=== PATIENT | male | born 1970 | race Caucasian/White ===

== ENCOUNTER 2023-07-02 11:32 | Outpatient (AMB) | payer BC, SELFPAY ==
--- NOTE | 2023-07-02 12:40 | AM.OFFWIN_ITS ---
I did not evaluate this patient. Intake Vital Signs 07/02/23 12:46 Height 6 ft BP 116/70 Blood Pressure Location Lt brachial Position Sitting Pulse 100 Pulse Source Pulse Oximeter Temp 98.1 F Temp Source Temporal Artery Scan Pulse Oximetry (%) 99 Oxygen Delivery Method Room Air Intake Visit Reasons: EP Fever, Eyes, bodyache [phone] Intake Note: Pt is here c/o fevers, body aches and red puffy bilateral eye irritation for the past three days. Patient Tobacco Use Status: Never used Tobacco Allergies No Known Allergies Allergy (Verified 07/02/23 12:41) Do you need a note to return to daycare/school/sports/work: Yes HPI EP Fever, Eyes, bodyache [phone] HPI Details Patient presents for a sick visit. Reporting symptoms of sinus congestion, sore throat and difficulty swallowing. Low-grade fever. No family member is sick. No recent travel. Patient reports symptoms of malaise and fatigue. [facility] Social History Patient Tobacco Use Status: Never used Tobacco Physical Exam Vital Signs: Last Vital Signs Temp 98.1 F 07/02/23 12:46 Pulse 100 07/02/23 12:46 BP 116/70 07/02/23 12:46 Pulse Ox 99 07/02/23 12:46 Oxygen Delivery Method Room Air 07/02/23 12:46 Const General: cooperative and healthy appearing Nutritional Appearance: well nourished Orientation/consciousness: patient oriented x3 Limitations: no limitations HEENT Head: Yes normal to inspection Eyes General: appearance normal, both eyes and all related structures Neck Neck: Yes normal visual inspection Chest Chest palpation & inspection: normal palpation of entire chest wall Resp Effort & Inspection: normal respiratory effort Neuro General: patient oriented x3 Assessment & Plan Assessment & Plan (1) Upper respiratory tract infection: Code(s): J06.9 - Acute upper respiratory infection, unspecified Plan: Azithromycin called in. . Increase fluid intake. Tylenol for aches and pains. If symptoms worsen, follow-up here for a recheck. Orders: Orders AMB [place] Screen Today Z13.9 - Encounter for screening, unspecified Coding Level of Care Code Est Pt Level 3 (55276) Diagnoses Upper respiratory tract infection J06.9
[2023-07-02 12:46] VITALS: BP 116/70; PULSE 100; TEMP 36.7; O2SAT 99
== END 2023-07-02 14:03 | disposition home or self-care (01) ==
PROVIDERS: Visit Provider Internal Medicine
DX: J06.9 Acute upper respiratory infection, unspecified (principal)
CPT/HCPCS: 99213

== ENCOUNTER 2023-07-02 13:17 | Outpatient (REF) | payer BC, SELFPAY ==
[2023-07-02 16:50] LABS: Monotest Negative (Negative)
== END 2023-07-02 13:18 | disposition home or self-care (01) ==
LOC: HO.HMGCLDS 13:17
PROVIDERS: Visit Provider Internal Medicine
DX: Z13.9 Encounter for screening, unspecified (principal)
CPT/HCPCS: 36415; 86308

== ENCOUNTER 2023-09-19 12:05 | Outpatient (AMB) | payer BC, SELFPAY ==
--- NOTE | 2023-09-19 12:14 | MHC.PC.OV ---
Vital Signs 09/19/23 12:15 Height 6 ft Weight 326 lb BMI 44.2 BP 130/74 Blood Pressure Location Lt brachial Position Sitting Pulse 87 Pulse Source Pulse Oximeter Pulse Oximetry (%) 97 Oxygen Delivery Method Room Air Intake Visit Reasons: est care Intake Note: Patient is here as a new patient with concern of fungus in both feet, and a scratched left cornea, it feels as if there is something in there. Allergies No Known Allergies Allergy (Verified 09/19/23 12:26) Tobacco use date assessed: 09/19/23 Dental Screening Dental Screen Date: 09/19/23 Did you have a dental visit in the last 12 months?: No Did you have a dental problem in the last 6 months where you did not have access to dental care?: No Was dental information given to patient?: Patient declined HPI est care HPI Details New patient Prior PCP:Kiarra Last office visit/CPE: 2 years Acute issue(s): Fungal infection of nail Eye irritation PMHx: Vertigo, Sleep apnea, Nail fungal infection. PNA SurgHx: None FHx: Dad: DM. Mom: Lung CA SocHx: Nonsmoker. EtOH Socially 1-2. No drugs. 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 Cognitive needs: No Hearing needs: No Vision needs: No Questionnaire Thrive Questionnaire Date Thrive assessed: 09/19/23 I am a: Patient What is your living situation today?: I have a steady place to live Within the past 12 months, did the food you bought not last and you didn't have the money to get more?: Never true Within the past 12 months, did you worry whether your food would run out before you got money to buy more?: Never true Do you have trouble paying for medicines?: No Do you have trouble getting transportation to medical appointments?: No Do you have trouble paying your heating and electricity bill?: No Do you have trouble taking care of your child, family member or friend?: No Do you have trouble with day-to-day activities such as bathing, preparing meals, shopping, managing finances, etc.?: No Are you currently unemployed and looking for a job?: No Are you interested in more education?: No AUDIT C Alcohol Use Questionnaire (AUDIT-C) 1. How often do you have a drink containing alcohol?: Never 2. How many drinks containing alcohol do you have on a typical day when you are drinking?: 1 or 2 3. How often do you have six or more drinks on one occasion?: Never Total Score: 0 SALBADOR-7 AMB Questionnaire SALBADOR-7 Feeling nervous, anxious, or on edge: 0 = Not at all Not being able to stop or control worryin = Not at all Worrying too much about different things: 0 = Not at all Trouble relaxin = Not at all Being so restless that it is hard to sit still: 0 = Not at all Becoming easily annoyed or irritable: 0 = Not at all Feeling afraid as if something awful might happen: 0 = Not at all Total SALBADOR-7 score (0-4 normal; 5-9 mild; 10-14 moderate; 15-21 severe): 0 Source: Developed by Drs. Gus Palacios, Em Clancy, Fede Hood and colleagues, with an educational karina from [employer]. Review of Systems Const Denies chills, Denies fatigue, Denies fever(s), Denies headache(s) and Denies weakness ENT Denies dizziness and Denies headache(s) Card Denies chest pain, Denies lightheadedness, Denies dyspnea and Denies other (Palpitations) Resp Denies cough, Denies dyspnea, Denies wheezing and Denies other ( shortness of breath) Musc Denies numbness and Denies tingling Neuro Denies dizziness, Denies headache(s), Denies numbness, Denies tingling, Denies paresthesias and Denies weakness Psych Denies anxiety and Denies depression Endo Denies fatigue Aller/Immun Denies wheezing Physical exam (Primary Care) Vital Signs: Last Vital Signs Pulse 87 09/19/23 12:15 BP 130/74 09/19/23 12:15 Pulse Ox 97 09/19/23 12:15 Oxygen Delivery Method Room Air 09/19/23 12:15 BMI result Body Mass Index 44.2 Tobacco/Smoking Status: Tobacco use Status Tobacco use date assessed 09/19/23 09/19/23 12:42 Patient Tobacco Use Status Never used Tobacco 09/19/23 12:42 Thrive Assessment: Date of Thrive Assessment Date Thrive assessed 09/19/23 09/19/23 12:42 Const General: no acute distress and well developed Nutritional Appearance: obese morbidly obese Orientation/consciousness: patient oriented x3 HENMT Head: Yes normocephalic and Yes atraumatic Eyes General: appearance normal, both eyes and all related structures Pupils: Equal, round and reactive pupils present EOM: EOMs intact bilaterally Resp Effort & Inspection: normal respiratory effort Auscultation: clear to auscultation bilaterally Cardio Rate: regular rate Rhythm: regular rhythm Heart sounds: S1 normal heart sound present, S2 normal heart sound present, no gallops, no murmurs and no rubs Neuro General: patient oriented x3 and gait normal Cranial nerves: Yes Equal, round and reactive pupils present Psych Affect: normal affect Assessment and Plan Assessment & Plan (1) Fungal infection of nail: Code(s): B35.1 - Tinea unguium Plan: Patient?has?used?oral?Lamisil?in?the?past Will?check?liver?enzymes?and?we?can?discuss?using?this?again?if?enzymes?are?within?normal?limits?and?patient?agrees?to?regular?checks. (2) Eye irritation: Code(s): H57.89 - Other specified disorders of eye and adnexa Plan: Left?scleral?irritation?which?may?be?allergic No?obvious?foreign?body?seen?but?can?not?rule?out?occult?foreign?body Will?refer?him?to?Ophthalmology Meantime,?he?can?use?an?erythromycin?ointment Will?also?give?him?a?script?for?eyedrops (3) Sleep apnea: Code(s): G47.30 - Sleep apnea, unspecified Plan: Continue?CPAP (4) Laboratory exam ordered as part of routine general medical examination: Code(s): Z00.00 - Encounter for general adult medical examination without abnormal findings Plan: Check?labs Orders: Orders Comprehensive Union. Panel Fast Today Z00.00 - Encounter for general adult medical examination without abnormal findings Prostate Specific Antigen Scr Today Z12.5 - Encounter for screening for malignant neoplasm of prostate UA and rflx microscopic Today Z00.00 - Encounter for general adult medical examination without abnormal findings Lipid Panel Today Z00.00 - Encounter for general adult medical examination without abnormal findings Microalbumin, Random (w Creat) Today I10 - Essential (primary) hypertension TSH reflex Free T4 Today Z00.00 - Encounter for general adult medical examination without abnormal findings Medications: New olopatadine 0.7% 1 drp ophthalmic (eye) DAILY 5 mL 1RF 30 days erythromycin 0.5 inches ophthalmic (eye) TID 3.5 grams 0RF 7 days Coding Level of Care Code Est Pt Level 4 (80376) Diagnoses Fungal infection of nail B35.1 Eye irritation H57.89 Sleep apnea G47.30 Laboratory exam ordered as part of routine general medical examination Z00.00
[2023-09-19 12:15] VITALS: BP 130/74; PULSE 87; O2SAT 97; BMI 44.2
== END 2023-09-19 13:21 | disposition home or self-care (01) ==
PROVIDERS: Visit Provider Family Medicine
DX: B35.1 Tinea unguium (principal); H57.89 Other specified disorders of eye and adnexa; G47.30 Sleep apnea, unspecified; Z00.00 Encounter for general adult medical examination without abnormal findings
CPT/HCPCS: 99214

== ENCOUNTER 2023-11-21 11:10 | Outpatient (REF) | payer BC, SELFPAY ==
[2023-11-21 12:36] LABS: Appearance Urine Clear; Color Urine Yellow; Glucose Urine UA Negative (Negative); Leukocyte Esterase Urine Negative (Negative); Nitrite Urine Negative (Negative); PH 5.5 (5.0-9.0); Specific Gravity - Urine 1.025 (1.005-1.025); Urine Blood Negative (Negative); Urine Ketones Negative (Negative); Urine Protein Trace mg/dL (Neg-Trace)
[2023-11-21 12:39] LABS: Alanine Aminotransferase 36 U/L (0-40); Alkaline Phosphatase 90 U/L (39-117); Anion Gap 9 (12-20); Aspartate Amino Transferase 20 U/L (5-37); Bilirubin Total 0.4 mg/dL (0.0-1.0); Blood Urea Nitrogen 14 mg/dL (9-16); Calcium 9.3 mg/dL (8.4-10.2); Carbon Dioxide 27 mmol/L (22-29); Chloride 107 mmol/L (96-108); Cholesterol 155 mg/dL (<200); Estimated Glomerular Filt Rate > 60; Glucose Fasting 117 mg/dL (60-99); HDL Cholesterol 36 mg/dL (>40); LDL Cholesterol Calculated 87 mg/dL (<100); Sodium 139 mmol/L (135-145); Total Protein 7.2 g/dL (6.5-8.0); Triglycerides 164 mg/dL (<150)
[2023-11-21 12:42] LABS: TSH reflex Free T4 0.84 uIU/mL (0.32-4.0)
[2023-11-21 13:02] LABS: Creatinine Urine 171.34 mg/dL; Microalbum/Creatinine Ratio Ur 69.4 ug/mg cr (<30)
== END 2023-11-21 11:11 | disposition home or self-care (01) ==
LOC: HO.LAB 11:10
PROVIDERS: PCP Family Medicine; Visit Provider Family Medicine
DX: Z00.00 Encounter for general adult medical examination without abnormal findings (principal); Z12.5 Encounter for screening for malignant neoplasm of prostate; I10 Essential (primary) hypertension
CPT/HCPCS: 36415; 80053; 80061; 81003; 82043; 82570; 84153; 84443

== ENCOUNTER 2023-12-25 10:07 | Outpatient (AMB) | payer OTHER, SELFPAY ==
[2023-12-25 10:11] VITALS: BP 128/72; PULSE 85; O2SAT 95; BMI 40.9
--- NOTE | 2023-12-25 10:11 | A.OFFPC_ITS ---
Vital Signs 12/25/23 10:11 Height 6 ft Weight 301 lb 4 oz BMI 40.9 BP 128/72 Blood Pressure Location Lt brachial Position Sitting Pulse 85 Pulse Source Pulse Oximeter Pulse Oximetry (%) 95 Oxygen Delivery Method Room Air Intake Visit Reasons: CPE with f/u labs and health maint. Intake Note: Patient is here for physical and follow up on labs, and is concerned of a little incontinence for months, since weight gain. Patient feels lack of energy, lethargic. Allergies No Known Allergies Allergy (Verified 12/25/23 10:17) Tobacco use date assessed: 12/25/23 Dental Screening Dental Screen Date: 12/25/23 Did you have a dental visit in the last 12 months?: No Did you have a dental problem in the last 6 months where you did not have access to dental care?: No Was dental information given to patient?: Patient declined HPI CPE with f/u labs and health maint. HPI Details 53 y/o male presents for a CPE with f/u labs and health maintenance. Labs were drawn 11/21/23. Reviewed labs with pt. Triglycerides 164. TC 155. LDL 87. HDL low at 36. Elevated fasting glucose of 117. A1c today 12/25/23 is 7.0%. Microalb/Creat Ratio 69.4. Pt has complaints of urinary incontinence. Pt has not had a colonoscopy yet. 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 1. Little interest or pleasure in doing things: not at all 2. Feeling down, depressed, or hopeless: not at all 3. Trouble falling or staying asleep, or sleeping too much: not at all 4. Feeling tired or having little energy: not at all 5. Poor appetite or overeating: not at all 6. Feeling bad about yourself - or that you are a failure or have let yourself or your family down: not at all 7. Trouble concentrating on things, such as reading the newspaper or watching television: not at all 8. Moving or speaking so slowly that other people could have noticed. Or the opposite - being so fidgety or restless that you have been moving around a lot more than usual: not at all 9. Thoughts that you would be better off or of hurting yourself in some way: not at all Total score: 0 Depression Screening Interpretation: Negative Depression Screening Done: Yes 08849 - PHQ-9 Billing: Yes Source: Developed by Drs. Gus Palacios, Em Clancy, Fede Hood and colleagues, with an educational karina from [employer]. Thrive Questionnaire Date Thrive assessed: 12/25/23 I am a: Patient What is your living situation today?: I have a steady place to live Within the past 12 months, did the food you bought not last and you didn't have the money to get more?: Never true Within the past 12 months, did you worry whether your food would run out before you got money to buy more?: Never true Do you have trouble paying for medicines?: No Do you have trouble getting transportation to medical appointments?: No Do you have trouble paying your heating and electricity bill?: No Do you have trouble taking care of your child, family member or friend?: No Do you have trouble with day-to-day activities such as bathing, preparing meals, shopping, managing finances, etc.?: No Are you currently unemployed and looking for a job?: No Are you interested in more education?: Yes THRIVE Score: 0 AUDIT C Alcohol Use Questionnaire (AUDIT-C) 1. How often do you have a drink containing alcohol?: Monthly or less 2. How many drinks containing alcohol do you have on a typical day when you are drinking?: 1 or 2 3. How often do you have six or more drinks on one occasion?: Never Total Score: 1 SALBADOR-7 AMB Questionnaire SALBADOR-7 Date SALBADOR - 7 assessed: 12/25/23 Feeling nervous, anxious, or on edge: 1 = Several days Not being able to stop or control worryin = Not at all Worrying too much about different things: 0 = Not at all Trouble relaxin = Several days Being so restless that it is hard to sit still: 0 = Not at all Becoming easily annoyed or irritable: 1 = Several days Feeling afraid as if something awful might happen: 0 = Not at all Total SALBADOR-7 score (0-4 normal; 5-9 mild; 10-14 moderate; 15-21 severe): 3 Source: Developed by Drs. Gus Palacios, Em Clancy, Fede Hood and colleagues, with an educational karina from [employer]. SALBADOR-7 Assessment Billing SALBADOR-7 Assessment Tool: SALBADOR-7 Assessment 26483 Review of Systems Const Denies chills, Denies fatigue, Denies fever(s), Denies headache(s) and Denies weakness Eyes Denies change in vision ENT Denies dizziness, Denies headache(s), Denies hearing loss, Denies nasal congestion, Denies sinus pain, Denies sinus pressure and Denies sore throat Card Denies chest pain, Denies lightheadedness, Denies dyspnea and Denies other (palpitations) Resp Denies cough, Denies dyspnea and Denies wheezing GI Denies abdominal pain, Denies melena, Denies hematochezia, Denies change in bowel habits, Denies dyspepsia and Denies nausea Denies hematuria and Denies dysuria Musc Denies abnormal gait, Denies myalgias, Denies arthralgias, Denies numbness and Denies tingling Skin/Breast Denies rash, Denies unusual bruising and Denies wounds Neuro Denies abnormal gait, Denies dizziness, Denies headache(s), Denies memory loss, Denies numbness, Denies Sensory deficit (Neuro), Denies tingling and Denies weakness Psych Denies anxiety, Denies depression and Denies memory loss Endo Denies cold intolerance, Denies fatigue, Denies heat intolerance, Denies polydipsia and Denies polyuria Paresh/Lymph Denies easy bleeding and Denies easy bruising Aller/Immun Denies wheezing Physical exam (Primary Care) Vital Signs: Last Vital Signs Pulse 85 12/25/23 10:11 BP 128/72 12/25/23 10:11 Pulse Ox 95 12/25/23 10:11 Oxygen Delivery Method Room Air 12/25/23 10:11 BMI result Body Mass Index 40.9 Tobacco/Smoking Status: Tobacco use Status Tobacco use date assessed 12/25/23 12/25/23 10:19 Patient Tobacco Use Status Never used Tobacco 12/25/23 10:15 e-Cigarette/Vaping Use Never Used 12/25/23 10:19 PHQ-9: PHQ-9 Score PHQ-9: Total score 0 12/25/23 10:25 Depression Screening Interpretation: Negative Thrive Assessment: Date of Thrive Assessment Date Thrive assessed 12/25/23 12/25/23 10:25 Const General: no acute distress, well developed, alert and awake Nutritional Appearance: well nourished Orientation/consciousness: patient oriented x3 HENMT Head: Yes normocephalic and Yes atraumatic Ears: hearing grossly normal bilaterally and TM's normal bilaterally General nose exam: Normal external nose present and Normal nares present Mouth: Normal oral and palatal mucosa present and moist mucous membranes Teeth and gingiva: dentition normal Throat: Yes posterior oropharynx normal Eyes General: appearance normal, both eyes and all related structures Pupils: Equal, round and reactive pupils present and Pupil accommodation reflex normal EOM: EOMs intact bilaterally Neck Neck: Yes normal visual inspection, Yes no lymphadenopathy and Yes trachea midline Thyroid: Thyroid normal Carotids: no bruits Lymphatic: no lymphadenopathy noted Chest Chest palpation & inspection: normal inspection of the chest Resp Effort & Inspection: normal respiratory effort Auscultation: clear to auscultation bilaterally Cardio Rate: regular rate Rhythm: regular rhythm Heart sounds: S1 normal heart sound present, S2 normal heart sound present, no gallops, no murmurs and no rubs Bruits: no abdominal aortic bruits and no carotid bruits GI Palpation (GI): No Abdominal aortic bruit present, Soft to palpation, nontender, No hepatosplenomegaly present and No Rebound tenderness present Auscultation: normal bowel sounds General: Yes no CVA tenderness Back/Spine/Pelvis Back: no CVA tenderness Cervical Spine: cervical ROM normal and No Cervical spine tenderness Thoracic/Lumbar Spine: thoraco-lumbar ROM normal, No pain with thoraco-lumbar ROM, No thoracic spinal tenderness and No lumbar spinal tenderness Skin Lesions: no lesions Rashes: no rashes Trauma: no lacerations or abrasions Wounds: no wounds Nails: normal Neuro General: patient oriented x3 Cranial nerves: Yes Equal, round and reactive pupils present Cognition (Neuro): normal cognition Gait exam (Neuro): Normal gait present Motor exam (neuro): 5/5 motor strength present throughout Sensory Exam: No Sensory deficit (Neuro) Deep tendon reflexes (DTR's): Right patellar reflex intensity grade: 2+ and Left patellar reflex intensity grade: 2+ Extrem General: Yes normal to inspection and No edema Psych Appearance: grossly normal Affect: normal affect Attitude: cooperative Thought process: Normal thought process present Results AMB Hemoglobin A1c AMB Hemoglobin A1c 7.0 % Last Edit by Ginger Anthony CMA on 12/25/23 11:19 Assessment and Plan Assessment & Plan (1) Adult general medical exam: Code(s): Z00.00 - Encounter for general adult medical examination without abnormal findings Plan: 53-year-old?male?presents?for?complete?physical?exam Encouraged?weight?loss?and?healthy?diet?with?acti ve?lifestyle?and?plenty?of?exercise (2) Urinary hesitancy: Code(s): R39.11 - Hesitancy of micturition Plan: Check?urinalysis Can?try?Flomax?while?awaiting?referral?to?urology PSA?was?1.70 (3) Diabetes: Code(s): E11.9 - Type 2 diabetes mellitus without complications Plan: A1c?7.0%. Diabetes. Goal?is?to?keep?A1c?less?than?7.0% He?has?a?strong?family?history?of?diabetes?as?well. Microalbumin?is?elevated Start?metformin?500?mg?daily Reduce?sugars?and?starches?in?diet (4) Microalbuminuria: Code(s): R80.9 - Proteinuria, unspecified Plan: Hydrate?well Work?at?a?diet?lower?in?sugars?and?starches?as?fasting?blood?sugar?has?been?elev ated Work?at?weight?loss (5) Screening for colon cancer: Code(s): Z12.11 - Encounter for screening for malignant neoplasm of colon Plan: Due?for?colonoscopy Referred?to?GI (6) Screening for prostate cancer: Code(s): Z12.5 - Encounter for screening for malignant neoplasm of prostate Plan: PSA?is?within?normal?range?at?1.70 (7) Sleep apnea: Code(s): G47.30 - Sleep apnea, unspecified Plan: Known?sleep?apnea?and?uses?a?CPAP?machine. Has?not?had?this?calibrated?in?many?years.??I?recommended?he?follow-u p?with?his?specialist?and?he?agrees Orders: Orders UA and rflx microscopic Today R39.11 - Hesitancy of micturition, Z00.00 - Encounter for general adult medical examination without abnormal findings Urine Culture Today R39.11 - Hesitancy of micturition AMB Hemoglobin A1c Today Z13.9 - Encounter for screening, unspecified Referrals Urology Referral R39.11 - Hesitancy of micturition Gastroenterology Referral Z12.11 - Encounter for screening for malignant neoplasm of colon Medications: New tamsulosin (Flomax) 0.4 mg PO DAILY 30 days 30 caps 1RF metformin 500 mg PO DAILY 30 tabs 2RF 30 days Coding Level of Care Code Est Pt Level 3 (75460) Est Pt Prev Care 40-64y(85815) Diagnoses Adult general medical exam Z00.00 Urinary hesitancy R39.11 Diabetes E11.9 Microalbuminuria R80.9 Screening for colon cancer Z12.11 Screening for prostate cancer Z12.5 Sleep apnea G47.30 Additional Codes SALBADOR-7 Assessment Billing - SALBADOR-7 Assessment Tool: SALBADOR-7 Assessment 27395 ([id number])
== END 2023-12-25 11:30 | disposition home or self-care (01) ==
PROVIDERS: Visit Provider Family Medicine
DX: Z00.00 Encounter for general adult medical examination without abnormal findings (principal); R39.11 Hesitancy of micturition; E11.9 Type 2 diabetes mellitus without complications; R80.9 Proteinuria, unspecified; Z12.11 Encounter for screening for malignant neoplasm of colon; Z12.5 Encounter for screening for malignant neoplasm of prostate; G47.30 Sleep apnea, unspecified
CPT/HCPCS: 83036; 99213; 99396

== ENCOUNTER 2023-12-25 11:12 | Outpatient (REF) | payer OTHER, SELFPAY | END 2023-12-25 11:13 | disposition home or self-care (01) | LOC: HO.LAB 11:12 | PROVIDERS: Visit Provider Family Medicine | DX: Z13.89 Encounter for screening for other disorder (principal) ==

== ENCOUNTER 2024-02-26 08:42 | Outpatient (AMB) | payer OTHER, SELFPAY ==
--- NOTE | 2024-02-26 08:45 | A.OFFPC_ITS ---
Vital Signs 02/26/24 08:48 02/26/24 08:50 Height 6 ft 6 ft Weight 299 lb 299 lb BMI 40.5 40.5 BP 128/72 128/72 Blood Pressure Location Rt brachial Rt brachial Position Sitting Respiration 14 Pulse 93 Pulse Source Pulse Oximeter Temp 98.8 F Temp Source Oral Pulse Oximetry (%) 96 Oxygen Delivery Method Room Air Intake Visit Reasons: f/u diabetes Intake Note: Follow up diabetes Inside Sales Lead Required: No Allergies No Known Allergies Allergy (Verified 02/26/24 08:46) Medication List - Last Reconciled 02/26/24 by Edouard Castro MD metformin 500 mg PO DAILY 30 days olopatadine 0.7% 1 drp ophthalmic (eye) DAILY 30 days tamsulosin (Flomax) 0.4 mg PO DAILY 30 days Tobacco use date assessed: 02/26/24 Dental Screening Dental Screen Date: 02/26/24 Did you have a dental visit in the last 12 months?: No Did you have a dental problem in the last 6 months where you did not have access to dental care?: No Was dental information given to patient?: No HPI f/u diabetes HPI Details 53 y/[facility] with A1c of 7.0%. Had started him on metformin. A1c today 02/26/24 is 7.0%. Pt reports nights sweats. 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 How often do you have a drink containing alcohol?: Monthly or less 2. How many drinks containing alcohol do you have on a typical day when you are drinking?: 1 or 2 3. How often do you have six or more drinks on one occasion?: Less than monthly Total Score: 2 SALBADOR-7 AMB Questionnaire SALBADOR-7 Date SALBADOR - 7 assessed: 12/25/23 Source: Developed by Drs. Gus Palacios, Em Clancy, Fede Hood and colleagues, with an educational karina from [employer]. Physical exam (Primary Care) Vital Signs: Last Vital Signs Temp 98.8 F 02/26/24 08:50 Pulse 93 02/26/24 08:50 Resp 14 02/26/24 08:50 BP 128/72 02/26/24 08:50 Pulse Ox 96 02/26/24 08:50 Oxygen Delivery Method Room Air 02/26/24 08:50 BMI result Body Mass Index 40.5 Tobacco/Smoking Status: Tobacco use Status Tobacco use date assessed 02/26/24 02/26/24 08:53 Patient Tobacco Use Status Never used Tobacco 02/26/24 08:53 e-Cigarette/Vaping Use Never Used 02/26/24 08:53 Thrive Assessment: Date of Thrive Assessment Date Thrive assessed 12/25/23 02/26/24 08:53 Results AMB Hemoglobin A1c AMB Hemoglobin A1c 7.0 % Last Edit by Sonal Silveira CMA on 02/26/24 09:01 Assessment and Plan Assessment & Plan (1) Diabetes: Code(s): E11.9 - Type 2 diabetes mellitus without complications Plan: A1c?remains?unchanged?at?7.0%.??Goal?is?less?than?7.0% Will?increase?metformin?from?500?mg?daily?to?750?mg?daily Encouraged?diet?lower?in?sugars?and?starches?and?exercise?and?weight?loss Also?will?refer?him?for?diabetic?teaching Also?referred?to?ophthalmology?and?recommended?he?get?a?diabetic?retinal?exam?on ce?a?year (2) Night sweats: Code(s): R61 - Generalized hyperhidrosis Plan: Mild?night?sweats.??Most?likely?secondary?to?diabetes. Will?check?labs?including?CBC?and?thyroid?hormone?levels If?not?improving?will?investigate?further Plan Also,?patient?had?had?mildly?elevated?microalbumin?level?at?last?visit?and?we?wi ll?recheck?this?as?well Orders: Orders Complete Blood Count Auto Diff Today R61 - Generalized hyperhidrosis, Z00.00 - Encounter for general adult medical examination without abnormal findings TSH reflex Free T4 Today R61 - Generalized hyperhidrosis, Z00.00 - Encounter for general adult medical examination without abnormal findings AMB Hemoglobin A1c Today E11.9 - Type 2 diabetes mellitus without complications Microalbumin, Random (w Creat) Today E11.9 - Type 2 diabetes mellitus without complications, I10 - Essential (primary) hypertension Comprehensive [place]. Panel Fast Today E11.9 - Type 2 diabetes mellitus without complications, Z00.00 - Encounter for general adult medical examination without abnormal findings Referrals Ophthalmology Referral E11.9 - Type 2 diabetes mellitus without complications Nurse Navigator Referral E11.9 - Type 2 diabetes mellitus without complications Medications: Changed From metformin 500 mg PO DAILY 30 days 30 tabs 0RF To metformin 750 mg (1.5 x 500 mg) PO DAILY 135 tabs 2RF 90 days Coding Level of Care Code Est Pt Level 3 (77739) Diagnoses Diabetes E11.9 Night sweats R61
[2024-02-26 08:48] VITALS: BP 128/72; BMI 40.5
[2024-02-26 08:50] VITALS: BP 128/72; PULSE 93; RESP 14; TEMP 37.1; O2SAT 96; BMI 40.5
== END 2024-02-26 09:09 | disposition home or self-care (01) ==
PROVIDERS: PCP Family Medicine; Visit Provider Family Medicine
DX: E11.9 Type 2 diabetes mellitus without complications (principal); R61 Generalized hyperhidrosis
CPT/HCPCS: 83036; 99213

== ENCOUNTER 2024-06-10 08:28 | Outpatient (AMB) | payer OTHER, SELFPAY ==
--- NOTE | 2024-06-10 08:38 | MHC.PC.OV ---
Vital Signs 06/10/24 08:40 Height 6 ft Weight 299 lb BMI 40.5 BP 128/80 Blood Pressure Location Lt brachial Position Sitting Respiration 16 Pulse 81 Pulse Source Pulse Oximeter Pulse Oximetry (%) 98 Oxygen Delivery Method Room Air Intake Visit Reasons: f/u diabetes Intake Note: Follow up diabetes Field Service Engineer Required: No Allergies No Known Allergies Allergy (Verified 06/10/24 08:38) Medication List - Last Reconciled 06/10/24 by Edouard Castro MD metformin 750 mg (1.5 x 500 mg) PO DAILY 90 days tamsulosin (Flomax) 0.4 mg PO DAILY 30 days Tobacco use date assessed: 02/26/24 Dental Screening Dental Screen Date: 02/26/24 HPI f/u diabetes HPI Details 53 y/o male presents to f/u diabetes. Had increased metformin to 750mg daily and advised further lifestyle changes. Last A1c 02/26/24 7.0%. A1c today 06/10/24 is 6.6%. 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 Gus Palacios, Em Clancy, Fede Hood and colleagues, with an educational karina from [employer]. Review of Systems Const Denies chills, Denies fatigue, Denies fever(s), Denies headache(s) and Denies weakness ENT Denies dizziness and Denies headache(s) Card Denies dyspnea Resp Denies cough, Denies dyspnea, Denies wheezing and Denies other (shortness of breath) Musc Denies numbness and Denies tingling Neuro Denies dizziness, Denies headache(s), Denies numbness, Denies tingling and Denies weakness Psych Denies anxiety and Denies depression Endo Denies fatigue Aller/Immun Denies wheezing Physical exam (Primary Care) Vital Signs: Last Vital Signs Pulse 81 06/10/24 08:40 Resp 16 06/10/24 08:40 BP 128/80 06/10/24 08:40 Pulse Ox 98 06/10/24 08:40 Oxygen Delivery Method Room Air 06/10/24 08:40 BMI result Body Mass Index 40.5 Tobacco/Smoking Status: Tobacco use Status Tobacco use date assessed 02/26/24 06/10/24 08:39 Patient Tobacco Use Status Never used Tobacco 06/10/24 08:39 e-Cigarette/Vaping Use Never Used 06/10/24 08:39 Thrive Assessment: Date of Thrive Assessment Date Thrive assessed 12/25/23 06/10/24 08:39 Const General: well developed; No acute distress Nutritional Appearance: well nourished Orientation/consciousness: patient oriented x3 HENMT Head: Yes normocephalic and Yes atraumatic Eyes General: appearance normal, both eyes and all related structures Pupils: Equal, round and reactive pupils present EOM: EOMs intact bilaterally Resp Effort & Inspection: normal respiratory effort Neuro General: patient oriented x3 and gait normal Cranial nerves: Yes Equal, round and reactive pupils present Psych Affect: normal affect Results AMB Hemoglobin A1c AMB Hemoglobin A1c 6.6 % Last Edit by Sonal Silveira CMA on 06/10/24 08:46 Results Reviewed Results Reviewed: Laboratory Last Values Hgb A1c (Clinic) 6.6 % (4.0-6.0) H 06/10/24 08:44 Assessment and Plan Assessment & Plan (1) Diabetes: Code(s): E11.9 - Type 2 diabetes mellitus without complications Plan: A1c?now?6.6%.??Goal?is?less?than?7.0%. Had?increased?metformin?from?500?mg?daily?to?750?mg?daily Patient?has?had?diabetic?teaching?with?the?nurse?navigator Continue?current?medication?regimen Continue?diabetic?diet?and?exercise?as?tolerated Had?referred?patient?to?Ophthalmology?but?he missed?the?appointment. Made?new?referral. (2) Rupture of right Achilles tendon: Code(s): S86.011A - Strain of right Achilles tendon, initial encounter Plan: Rupture?of?right?Achilles?tendon?and?s/p?repair Still?undergoing?physical?therapy Continue?physical?therapy?and?exercise?as?tolerated. Follow-up?with?ortho?as?recommended (3) Urinary hesitancy: Code(s): R39.11 - Hesitancy of micturition Plan: Not?getting?much?improvement?from?Flomax.??He?can?discontinue?this Made?a?referral?to?urology?but?patient?pushed?off?appointment?due?to?the?above?Achilles?tendon?rupture. He?will?follow-up?with?urology Orders: Orders AMB Hemoglobin A1c Today E11.9 - Type 2 diabetes mellitus without complications Referrals Ophthalmology Referral E11.9 - Type 2 diabetes mellitus without complications Coding Level of Care Code Est Pt Level 4 (05895) Diagnoses Diabetes E11.9 Rupture of right Achilles tendon S86.011A Urinary hesitancy R39.11
[2024-06-10 08:40] VITALS: BP 128/80; PULSE 81; RESP 16; O2SAT 98; BMI 40.5
== END 2024-06-10 13:33 | disposition home or self-care (01) ==
PROVIDERS: PCP Family Medicine; Visit Provider Family Medicine
DX: E11.9 Type 2 diabetes mellitus without complications (principal); S86.011A Strain of right Achilles tendon, initial encounter; R39.11 Hesitancy of micturition
CPT/HCPCS: 83036; 99214

== ENCOUNTER 2024-06-10 09:06 | Outpatient (REF) | payer OTHER, SELFPAY ==
[2024-06-10 11:13] LABS: MANUAL DIFF FLAG NO
[2024-06-10 11:21] LABS: Basophils Absolute Auto 0.1 X10*3/uL (0.0-0.2); Basophils Percent Auto 0.7 % (0-2); Eosinophils Absolute Auto 0.3 X10*3/uL (0.0-0.4); Eosinophils Percent Auto 4.2 % (0-4); Hematocrit 44.7 % (42.0-52.0); Hemoglobin 15.2 g/dl (14.0-18.0); Imm Gran Abs Auto 0.06 X10*3/uL (0.00-0.03); Imm Gran Pct Auto 0.9 % (0.0-0.4); Lymphocytes Absolute Auto 1.8 X10*3/uL (1.2-4.9); Lymphocytes Percent Auto 26.3 % (20-40); Mean Corpuscular Hemoglobin 28.4 pg (27.0-33.0); Mean Corpuscular Volume 83.6 fL (80.0-98.0); Mean Platelet Volume 10.1 fL (9.4-12.4); Monocytes Absolute Auto 0.7 X10*3/uL (0.1-1.2); Monocytes Percent Auto 9.4 % (2-11); Neutrophils Absolute Auto 4.1 x10*3/uL (2.0-8.3); Neutrophils Percent Auto 58.5 % (45-73); Platelet Count 253 X10*3/uL (160-400); Red Blood Count 5.35 X10*6/uL (4.60-5.80); Red Cell Distribution Width 13.9 % (11.0-16.0); White Blood Count 6.9 X10*3/uL (4.8-10.8)
[2024-06-10 12:12] LABS: Appearance Urine Clear; Color Urine Yellow; Glucose Urine UA Negative (Negative); Leukocyte Esterase Urine Negative (Negative); Nitrite Urine Negative (Negative); Specific Gravity - Urine >= 1.030 (1.005-1.025); Urine Blood Negative (Negative); Urine Ketones Negative (Negative); Urine Protein Trace mg/dL (Neg-Trace)
[2024-06-10 12:13] LABS: Alanine Aminotransferase 26 U/L (0-40); Albumin Level 4.1 g/dL (3.5-5.0); Alkaline Phosphatase 94 U/L (39-117); Anion Gap 11 (12-20); Aspartate Amino Transferase 17 U/L (5-37); Bilirubin Total 0.4 mg/dL (0.0-1.0); Blood Urea Nitrogen 15 mg/dL (9-16); Calcium 9.4 mg/dL (8.4-10.2); Carbon Dioxide 25 mmol/L (22-29); Chloride 107 mmol/L (96-108); Estimated Glomerular Filt Rate > 60; Glucose Fasting 127 mg/dL (60-99); Sodium 139 mmol/L (135-145); TSH reflex Free T4 1.21 uIU/mL (0.32-4.0); Total Protein 7.2 g/dL (6.5-8.0)
[2024-06-10 12:40] LABS: Creatinine Urine 189.19 mg/dL; Microalbum/Creatinine Ratio Ur 53.9 ug/mg cr (<30)
== END 2024-06-10 09:07 | disposition home or self-care (01) ==
LOC: HO.WFDLDS 09:06
PROVIDERS: Visit Provider Family Medicine
DX: Z00.00 Encounter for general adult medical examination without abnormal findings (principal); E11.9 Type 2 diabetes mellitus without complications; R39.11 Hesitancy of micturition; R61 Generalized hyperhidrosis; I10 Essential (primary) hypertension
CPT/HCPCS: 36415; 80053; 81003; 82043; 82570; 84443; 85025; 87086

== ENCOUNTER 2024-07-28 09:09 | Outpatient (AMB) | payer OTHER, SELFPAY ==
--- NOTE | 2024-07-28 09:09 | MHC.OFFVIS ---
Intake Visit Reasons: Hesitancy of micturition Intake Note: New Patient presents for initial visit for urinary hesitancy Urology Medications: none Blood Thinner: none PVR: 0ml's Caretaker Resort Required: No Accompanied by: Self / Same As Patient Allergies No Known Allergies Allergy (Verified 07/28/24 09:51) Medication List - Last Reconciled 07/28/24 by ZACK Torres metformin 750 mg (1.5 x 500 mg) PO DAILY 90 days terazosin 5 mg PO BEDTIME 30 days HPI Comments Details: Mark is a 53-year-old male patient of Dr. Castro. He has a past medical history of diabetes and sleep apnea. He presents to the office today as a new patient for ongoing lower urinary tract symptoms he has been experiencing. In discussion with the patient today reports having followed up with his PCP and discussing urinary hesitancy as well as weak urinary stream at which time he was started on Flomax and referral was made to Urology for further assessment evaluation. Patient reports having stopped Flomax as he did not find this helpful. He feels symptoms have been present for approximately 1 year. In office urinalysis results reviewed with the patient today. PVR 0 mL. He otherwise denies urinary urgency, urinary frequency, incontinence, nocturia, hematuria, dysuria, foul smelling urine, flank pain, fever, and or chills. We discussed at length potential causes for lower urinary tract symptoms he is experiencing. In review of patient's chart it appears PSA 11/16 1.7. Discussed obtaining retroperitoneal ultrasound and redraw of PSA for further assessment evaluation. We discussed affects of diabetes on lower urinary tract symptoms. We discussed potential for near future in office cystoscopy if symptoms continue and or worsen. He otherwise offers no other issues or concerns at this time. 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 Cognitive needs: No Hearing needs: No Vision needs: No Review of Systems Const All systems reviewed & are unremarkable except as noted in HPI and below Physical Exam Const General: cooperative, healthy appearing, comfortable, no acute distress, well developed, alert and awake Orientation/consciousness: patient oriented x3 Limitations: no limitations HEENT Head: Yes normal to inspection, Yes normocephalic and Yes atraumatic Ears: hearing grossly normal bilaterally Eyes General: appearance normal, both eyes and all related structures Neck Neck: Yes normal visual inspection and Yes trachea midline Chest Chest palpation & inspection: normal inspection of the chest Resp Effort & Inspection: normal respiratory effort and able to speak in complete sentences Cardio Rate: regular rate GI Inspection: Yes normal to inspection General: Yes no CVA tenderness Back/Spine/Pelvis Back: no CVA tenderness Skin General skin exam: no rashes or lesions noted Neuro General: patient oriented x3 Extrem General: Yes normal to inspection Psych Appearance: grossly normal and well kempt Mental Status: mental status grossly normal Speech and movement: Normal speech and movement present and Clear speech present Affect: normal affect Attitude: cooperative Thought process: Normal thought process present Thought content: Normal thought content present Insight: Fair insight present (Psych) Judgement: Fair judgement present (Psych) Office Procedures Post Void Residual Post Residual Void Post Void Residual (PVR): 0 [id number] Void Residual by ultrasound Results AMB Urinalysis, Automated UA Leukoctes 0 Juan M/uL Last Edit by Lalalama Cesar on 07/28/24 09:31 UA Nitrite Negative Last Edit by Lalalama Cesar on 07/28/24 09:31 UA Urobilinogen 0.2 mg/dL Last Edit by Inkblazerslia Guerrero on 07/28/24 09:31 UA Protein 15 mg/dL Last Edit by JJS Mediaмарина on 07/28/24 09:31 UA pH 6.0 Last Edit by Inkblazerslia Guerrero on 07/28/24 09:31 UA Blood 0 Jos/uL Last Edit by Inkblazerslia Guerrero on 07/28/24 09:31 UA Specific Leslie 1.025 Last Edit by Lalalama Cesar on 07/28/24 09:31 UA Ketone Negative Last Edit by Lalalama Cesar on 07/28/24 09:31 UA Bilirubin 0 mg/dL Last Edit by Jim Guerrero on 07/28/24 09:31 UA Glucose 0 mg/dL Last Edit by Jim Guerrero on 07/28/24 09:31 Results Reviewed Results Reviewed: Laboratory Last Values Urine pH (Auto) 6.0 07/28/24 09:12 Specific Leslie (Auto) 1.025 07/28/24 09:12 Urine Protein (Auto) 15 mg/dL 07/28/24 09:12 Glucose (UA)(Auto) 0 mg/dL 07/28/24 09:12 Urine Ketones (Auto) Negative 07/28/24 09:12 Urine Blood (Auto) 0 Jos/uL 07/28/24 09:12 Urine Nitrite (Auto) Negative 07/28/24 09:12 Urine Bilirubin (Auto) 0 mg/dL 07/28/24 09:12 Urine Urobilinogen (Auto) 0.2 mg/dL 07/28/24 09:12 Leukocyte Esterase (Auto) 0 Juan M/uL 07/28/24 09:12 Assessment & Plan Assessment & Plan (1) Urinary hesitancy: Code(s): R39.11 - Hesitancy of micturition Category: Medical (2) Weak urinary stream: Code(s): R39.12 - Poor urinary stream Category: Medical Plan In office urinalysis results reviewed with the patient today; as noted above. PVR 0 mL. Discussed at length potential causes of urinary hesitancy as well as weak urinary stream. Discussed attempting to sit when voiding to assist with feelings of urinary hesitancy. Will obtain retroperitoneal ultrasound for further assessment evaluation. Will obtain PSA for further assessment evaluation. Start terazosin as discussed and prescribed. Discussed possible near future in office cystoscopy if symptoms continue and or worsen. Follow-up in 1-3 months with imaging and labs to be completed prior; or sooner with any issues, concerns, and or questions. Orders: Orders AMB Urinalysis Automated Today Z13.9 - Encounter for screening, unspecified AMB Post Void Residual by ultrasound Today R39.11 - Hesitancy of micturition Prostate Specific Antigen Today R39.11 - Hesitancy of micturition, R39.12 - Poor urinary stream US retroperitoneal comp Today R39.11 - Hesitancy of micturition, R39.12 - Poor urinary stream Medications: New terazosin 5 mg PO BEDTIME 30 caps 3RF 30 days N40.1 - Benign prostatic hyperplasia with lower urinary tract symptoms, R35.0 - Frequency of micturition Patient Instructions: The patient had an opportunity to ask questions regarding the treatment plan. All questions were answered. Physical exam, labs, and imaging were discussed and reviewed in detail. As well as risks, benefits, and discussion of treatment choices. No major barriers to understanding were identified. The patient expressed understanding and agreement with the above treatment plan. The patient was made aware they should contact our office by phone for worsening of their current condition, the appearance of new symptoms, or with any questions or concerns. Compliance is encouraged with any medications and follow up testing that is ordered. It is a privilege to be allowed the opportunity to participate in? your urological care.? Again, if you have any questions or concerns If you have any questions or concerns please do not hesitate to contact me. The office is [phone]. This note is constructed using voice recognition software. While every effort has been made to ensure accuracy cleaner greaser errors may have been included. Yours sincerely, ZACK Torres Coding Level of Care Code New Pt Level 4 (43283) Diagnoses Urinary hesitancy R39.11 Weak urinary stream R39.12 CPT Codes Post Residual Void - PVR CPT Code: 10154-Htvo Void Residual by ultrasound ([id number])
== END 2024-07-28 09:42 | disposition home or self-care (01) ==
PROVIDERS: PCP Family Medicine; Visit Provider Nurse Practitioner Family
DX: R39.11 Hesitancy of micturition (principal); R39.12 Poor urinary stream; Z13.9 Encounter for screening, unspecified
CPT/HCPCS: 99204

== ENCOUNTER → 2024-07-28 09:09 | Outpatient (BNVA) | payer OTHER, SELFPAY | PROVIDERS: PCP Family Medicine; Visit Provider Nurse Practitioner Family | DX: R39.11 Hesitancy of micturition (principal); R39.12 Poor urinary stream | CPT/HCPCS: 51798; 81003 ==

== ENCOUNTER 2024-07-28 09:45 | Outpatient (REF) | payer OTHER, SELFPAY ==
[2024-07-28 11:44] LABS: Prostate Specific Antigen 10.05 ng/mL (<0.05-4.0)
== END 2024-07-28 09:46 | disposition home or self-care (01) ==
LOC: HO.10HDL 09:45
PROVIDERS: Visit Provider Nurse Practitioner Family
DX: Z12.5 Encounter for screening for malignant neoplasm of prostate (principal); R39.12 Poor urinary stream; R39.11 Hesitancy of micturition
CPT/HCPCS: 36415; 84153

== ENCOUNTER 2024-08-12 09:16 | Outpatient (AMB) | payer OTHER, SELFPAY ==
--- NOTE | 2024-08-12 09:19 | A.OFFVIS_ITS ---
Vital Signs 08/12/24 09:26 Height 6 ft Weight 295 lb 6.711 oz BMI 40.1 BP 124/83 Blood Pressure Location Lt brachial Position Sitting Pulse 77 Intake Visit Reasons: Colonoscopy Screening Intake Note: New patient in office today for colonoscopy screening. CC: Patient has never had a colonoscopy done and denies having any GI sytmptoms today. Allergies No Known Allergies Allergy (Verified 08/12/24 09:28) HPI HPI Colonoscopy Screening: Details: 53-year-old male here for preprocedural meeting to discuss a screening colonoscopy. He is referred by Edouard Castro PMX QUINN Diabetes Achilles tendon rupture * SURGICAL HISTORY achilles tendon repair - rt * ALLERGY: NKDA * [id number] LABS: Laboratory Tests 06/10/24 09:08 WBC 6.9 Hgb 15.2 Hct 44.7 Plt Count 253 Estimated GFR > 60 Total Bilirubin 0.4 AST 17 ALT 26 Alkaline Phosphatase 94 TSH 1.21 TODAY'S VISIT This is his first colonoscopy. He denies any bowel or upper GI problems.. He had no problems with anesthesia and sedation during his Achilles tendon repair repair. Otherwise he is fairly naive to anesthesia and sedation. No ID problems. He has QUINN and denies any cardiac problems. There is no known FHX of CRC or polyps. [facility] Medical History Screening for prostate cancer Screening for colon cancer Adult general medical exam Upper respiratory tract infection Laboratory exam ordered as part of routine general medical examination Sleep apnea Surgical History S/P Achilles tendon repair Family History Mother Breast cancer Lung cancer Father Diabetes Maternal Grandmother Thyroid disorder Maternal Grandfather Lung cancer Paternal Grandfather Diabetes Social History Housing: House Patient Tobacco Use Status: Never used Tobacco e-Cigarette/Vaping Use: Never Used service: No Current occupational status: employed 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 Cognitive needs: No Hearing needs: No Vision needs: No Review of Systems Const Denies fatigue, Denies fever(s), Denies night sweats, Denies poor appetite and Denies weight loss ENT Reports Normal hearing present, Denies dental pain, Denies dysphagia, Denies hearing loss, Denies mouth pain, Denies odynophagia, Denies throat swelling, Denies tongue swelling and Reports other (Dentition adequate) Card Reports no additional complaints Resp Reports no additional complaints GI Details: Denies abdominal pain, Denies melena, Denies bloating, Denies hematochezia, Denies constipation, Denies GI cramping, Denies dysphagia, Denies excessive flatus, Denies early satiety, Denies heartburn, Denies diarrhea, Denies nausea, Denies odynophagia, Denies vomiting and Denies hematemesis Skin/Breast Denies pruritus, Denies lesions, Denies rash and Denies jaundice Neuro Reports Normal hearing present and Denies Abnormal speech present Endo Denies fatigue Aller/Immun Denies throat swelling and Denies tongue swelling Physical Exam Vital Signs: Last Vital Signs Pulse 77 08/12/24 09:26 BP 124/83 08/12/24 09:26 BMI result Body Mass Index 40.1 Const General: cooperative, no acute distress, well developed and well groomed Nutritional Appearance: well nourished and obese Orientation/consciousness: oriented to person, oriented to place and oriented to time Limitations: No language barrier HEENT Head: Yes normocephalic and Yes atraumatic Eyes General: appearance normal, both eyes and all related structures Pupils: Equal, round and reactive pupils present Neck Neck: Yes normal visual inspection and Yes no lymphadenopathy Thyroid: Thyroid normal Resp Effort & Inspection: normal respiratory effort and able to speak in complete sentences Auscultation: clear to auscultation bilaterally Cardio Rate: regular rate Rhythm: regular rhythm Heart sounds: Normal, physiologic split S2 sound present Peripheral pulses: radial pulses present and posterior tibial pulses present GI Inspection: No distended, Yes Abdominal panniculus present and Yes obesity Palpation (GI): Soft to palpation, nontender, no guarding, not rigid, No hepatosplenomegaly present and Hernia present umbilical (mild) Percussion: Yes normal to percussion Auscultation: normal bowel sounds Rectal Exam - Male: Yes deferred Skin General skin exam: no rashes or lesions noted, turgor normal, skin not dry, no jaundice, No spider nevi and no striae Rashes: no rashes Nails: normal Neuro General: oriented to person, oriented to place and oriented to time Cranial nerves: Yes Equal, round and reactive pupils present and Yes Normal hearing present Speech: No Abnormal speech present Extrem General: Yes normal to inspection, No clubbing, No cyanosis and No edema Psych Appearance: grossly normal and well kempt Mental Status: mental status grossly normal Speech and movement: Normal speech and movement present Affect: normal affect Attitude: cooperative Thought process: Normal thought process present and not confabulating Thought content: Normal thought content present Insight: Fair insight present (Psych) Judgement: Fair judgement present (Psych) Assessment & Plan Assessment & Plan (1) Pre-op examination: Code(s): Z01.818 - Encounter for other preprocedural examination Category: Medical (2) Sleep apnea: Code(s): G47.30 - Sleep apnea, unspecified Category: Medical Plan This is his first colonoscopy. He denies any bowel or upper GI problems.. He had no problems with anesthesia and sedation during his Achilles tendon repair repair. Otherwise he is fairly naive to anesthesia and sedation. No ID problems. He has QUINN and denies any cardiac problems. There is no known FHX of CRC or polyps. Orders: Orders Colonoscopy - GI Use Only 08/12/24 Z01.818 - Encounter for other preprocedural examination Medications: New peg 3350-electrolytes 236-22.74-6.74 -5.86 gram (Golytely) until fecal effluent is clear; do not exceed a total volume of 2,000 mL 240 mL PO Q10M 4,000 mL 0RF 1 day Z12.11 - Encounter for screening for malignant neoplasm of colon Coding Level of Care Code New Pt Level 3 (95548) Diagnoses Pre-op examination Z01.818 Sleep apnea G47.30
[2024-08-12 09:26] VITALS: BP 124/83; PULSE 77; BMI 40.1
== END 2024-08-12 10:02 | disposition home or self-care (01) ==
PROVIDERS: PCP Family Medicine; Visit Provider Nurse Practitioner
DX: Z01.818 Encounter for other preprocedural examination (principal); G47.30 Sleep apnea, unspecified
CPT/HCPCS: 99203

== ENCOUNTER → 2024-08-12 09:16 | Outpatient (BNVA) | payer OTHER, SELFPAY | PROVIDERS: PCP Family Medicine; Visit Provider Nurse Practitioner ==

== ENCOUNTER 2024-08-12 10:06 | Outpatient (REF) | payer OTHER, SELFPAY ==
[2024-08-12 12:44] LABS: PSA,Total (Free>4and<10) 7.71 ng/mL (0.00-4.00)
[2024-08-13 11:34] LABS: Percent Free Prostate Spec Ag 13 % (calc) (>25); Prostate Specific Ag Total 7.7 ng/mL (< OR = 4.0)
== END 2024-08-12 10:07 | disposition home or self-care (01) ==
LOC: HO.10HDL 10:06
PROVIDERS: Visit Provider Nurse Practitioner Family
DX: Z12.5 Encounter for screening for malignant neoplasm of prostate (principal); R39.12 Poor urinary stream; R97.20 Elevated prostate specific antigen [PSA]
CPT/HCPCS: 36415; 84153; 84154

== ENCOUNTER 2024-08-18 10:05 | Outpatient (REF) | payer OTHER, SELFPAY ==
--- NOTE | ~2024-08-18 | US_ITS ---
EXAMINATION: US RETROPERITONEAL COMPLETE (RENAL) CLINICAL INFORMATION: Hesitancy of micturition. COMPARISON: None available. TECHNIQUE: Real-time imaging of the kidneys and bladder. FINDINGS: RIGHT KIDNEY: 13.1 x 7.2 x 5.5 cm (SAG x AP x TRV). The kidney is normal in size, contour, and echogenicity. Renal cortical thickness is normal. No calculi or focal parenchymal lesions. No hydronephrosis. LEFT KIDNEY: 13.2 x 5.1 x 4.3 cm (SAG x AP x TRV). The kidney is normal in size, contour, and echogenicity. Renal cortical thickness is normal. No calculi or focal parenchymal lesions. No hydronephrosis. BLADDER: Well distended and normal. Bilateral ureteral jets are demonstrated. Prevoid bladder volume is 293 mL. Postvoid bladder volume is 21.3 mL. Enlarged prostate, volume 43.4 mL. US/US retroperitoneal comp IMPRESSION: Mildly enlarged prostate gland. Normal renal and bladder ultrasound otherwise. Electronically signed by: Cj Ricketts MD 09/02/2024 10:49 AM EDT
== END 2024-08-18 10:06 | disposition home or self-care (01) ==
LOC: HO.US 10:05
PROVIDERS: PCP Family Medicine; Visit Provider Nurse Practitioner Family
DX: R39.11 Hesitancy of micturition (principal); R39.12 Poor urinary stream
CPT/HCPCS: 76770

== ENCOUNTER 2024-09-03 07:49 | Outpatient (AMB) | payer OTHER, SELFPAY ==
--- NOTE | 2024-09-03 07:52 | MHC.OFFVIS ---
Intake Visit Reasons: 1m/US/PSA(set) Intake Note: Patient presents today for follow up visit on: urinary hesitancy, ultrasound and psa results PSA: 7.7 Imaging Completed: 08/18/24 Urology Medications: none Blood Thinner: none PVR: Machine Installer Required: No Accompanied by: Self / Same As Patient Allergies No Known Allergies Allergy (Verified 09/03/24 08:30) Medication List - Last Reconciled 09/03/24 by ZACK Torres metformin 750 mg (1.5 x 500 mg) PO DAILY 90 days peg 3350-electrolytes 236-22.74-6.74 -5.86 gram (Golytely) 240 mL PO Q10M 1 day sulfamethoxazole-trimethoprim 800-160 mg (Bactrim DS) 1 tab PO BID 14 days terazosin 5 mg PO BEDTIME 30 days HPI Comments Details: Mark is a 53-year-old male patient of Dr. Castro. He has a past medical history of diabetes and sleep apnea. He presents to the office today for follow-up. Of note, patient was seen approximately 6 weeks ago as a new patient for ongoing lower urinary tract symptoms he had been experiencing at which time a PSA and retroperitoneal ultrasound were ordered for further assessment evaluation. Upon further assessment of PSA labs were reviewed and call to patient to obtain redraw of PSA with no sex the night before, no caffeine morning of, and no heavy lifting 1-2 days prior. These results were reviewed with the patient today. PSA: 11/16 1.7, 08/18 10.1, 08/18 7.7 % free PSA 13% Bilateral kidneys with no calculi, lesions, and or hydronephrosis. The bladder is well distended and normal. Bilateral jets are demonstrated. Pre void bladder volume is approximately 300 mL. Postvoid bladder volume is approximately 20 mL. Prostate volume measures approximately 43 mL. In discussion with the patient today he reports feeling lower urinary tract symptoms continue however feels terazosin has been more helpful than Flomax. We discussed at length potential causes of labile PSA. We discussed further treatment options and risks and benefits of these treatment options. All questions were answered. In office urinalysis results reviewed with the patient today. PVR 32 mL. He does continue to report urinary hesitancy, weak urinary stream, and intermittent episodes of dysuria. We discussed potential for prostatitis. ALESIA offered however deferred. He otherwise denies urinary urgency, urinary frequency, incontinence, nocturia, hematuria, foul smelling urine, flank pain, fever, and or chills. We discussed at length potential causes for lower urinary tract symptoms he is experiencing. We discussed affects of diabetes on lower urinary tract symptoms. He otherwise offers no other issues or concerns at this time. [facility] Medical History Screening for prostate cancer Screening for colon cancer Adult general medical exam Upper respiratory tract infection Laboratory exam ordered as part of routine general medical examination Sleep apnea Surgical History S/P Achilles tendon repair Family History Mother Breast cancer Lung cancer Father Diabetes Maternal Grandmother Thyroid disorder Maternal Grandfather Lung cancer Paternal Grandfather Diabetes Social History Housing: House Patient Tobacco Use Status: Never used Tobacco e-Cigarette/Vaping Use: Never Used service: No Current occupational status: employed 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 Cognitive needs: No Hearing needs: No Vision needs: No Review of Systems Const All systems reviewed & are unremarkable except as noted in HPI and below Physical Exam Const General: cooperative, healthy appearing, comfortable, no acute distress, well developed, alert and awake Orientation/consciousness: patient oriented x3 Limitations: no limitations HEENT Head: Yes normal to inspection, Yes normocephalic and Yes atraumatic Ears: hearing grossly normal bilaterally Eyes General: appearance normal, both eyes and all related structures Neck Neck: Yes normal visual inspection and Yes trachea midline Chest Chest palpation & inspection: normal inspection of the chest Resp Effort & Inspection: normal respiratory effort and able to speak in complete sentences Cardio Rate: regular rate GI Inspection: Yes normal to inspection General: Yes no CVA tenderness Back/Spine/Pelvis Back: no CVA tenderness Skin General skin exam: no rashes or lesions noted Neuro General: patient oriented x3 Extrem General: Yes normal to inspection Psych Appearance: grossly normal and well kempt Mental Status: mental status grossly normal Speech and movement: Normal speech and movement present and Clear speech present Affect: normal affect Attitude: cooperative Thought process: Normal thought process present Thought content: Normal thought content present Insight: Fair insight present (Psych) Judgement: Fair judgement present (Psych) Office Procedures Post Void Residual Post Residual Void Post Void Residual (PVR): 32 47612-[id number] Void Residual by ultrasound Results AMB Urinalysis, Automated UA Leukoctes 0 Juan M/uL Last Edit by Jim Guerrero on 09/03/24 08:06 UA Nitrite Last Edit by [place] [employer] Guerrero on 09/03/24 08:06 UA Urobilinogen 0.2 mg/dL Last Edit by [place] [employer] on 09/03/24 08:06 UA Protein 30 mg/dL Last Edit by [employer] on 09/03/24 08:06 UA pH 6.5 Last Edit by [employer] on 09/03/24 08:06 UA Blood 0 Jos/uL Last Edit by [employer] on 09/03/24 08:06 UA Specific [place] 1.015 Last Edit by [employer] on 09/03/24 08:06 UA Ketone Negative Last Edit by [place] [employer] on 09/03/24 08:06 UA Bilirubin 0 mg/dL Last Edit by [employer] on 09/03/24 08:06 UA Glucose 0 mg/dL Last Edit by [employer] on 09/03/24 08:06 Results Reviewed Results Reviewed: Laboratory Last Values Urine pH (Auto) 6.5 09/03/24 07:59 Specific [place] (Auto) 1.015 09/03/24 07:59 Urine Protein (Auto) 30 mg/dL 09/03/24 07:59 Glucose (UA)(Auto) 0 mg/dL 09/03/24 07:59 Urine Ketones (Auto) Negative 09/03/24 07:59 Urine Blood (Auto) 0 Jos/uL 09/03/24 07:59 Urine Bilirubin (Auto) 0 mg/dL 09/03/24 07:59 Urine Urobilinogen (Auto) 0.2 mg/dL 09/03/24 07:59 Leukocyte Esterase (Auto) 0 Juan M/uL 09/03/24 07:59 Date of Service: 08/18/24 EXAMINATION: US RETROPERITONEAL COMPLETE (RENAL) FINDINGS: RIGHT KIDNEY: 13.1 x 7.2 x 5.5 cm (SAG x AP x TRV). The kidney is normal in size, contour, and echogenicity. Renal cortical thickness is normal. No calculi or focal parenchymal lesions. No hydronephrosis. LEFT KIDNEY: 13.2 x 5.1 x 4.3 cm (SAG x AP x TRV). The kidney is normal in size, contour, and echogenicity. Renal cortical thickness is normal. No calculi or focal parenchymal lesions. No hydronephrosis. BLADDER: Well distended and normal. Bilateral ureteral jets are demonstrated. Prevoid bladder volume is 293 mL. Postvoid bladder volume is 21.3 mL. Enlarged prostate, volume 43.4 mL. IMPRESSION: Mildly enlarged prostate gland. Normal renal and bladder ultrasound otherwise. Assessment & Plan Assessment & Plan (1) Elevated PSA: Code(s): R97.20 - Elevated prostate specific antigen [PSA] Category: Medical (2) Prostatitis: Code(s): N41.9 - Inflammatory disease of prostate, unspecified Category: Medical Plan In office Urinalysis results reviewed with the patient today; as noted above. PVR 32 mL. Patient reports terazosin has been helpful and treatment of lower urinary tract symptoms. Discussed at length potential causes of elevated PSA We discussed further treatment options to include antibiotic therapy x2 weeks for potential prostatitis given patient's lower urinary tract symptoms, prostate biopsy, verses MRI of the prostate versus surveillance monitoring; risks and benefits of these interventions were discussed at length. ALESIA offered however deferred. Start Bactrim as discussed and prescribed. Will obtain PSA 6 weeks status post completion antibiotic therapy. Follow-up in 6-8 weeks with PSA to be completed prior; or sooner with any issues, concerns, and or questions. Orders: Orders AMB Post Void Residual by ultrasound Today R39.11 - Hesitancy of micturition PSA,Total (Free>4and<10) 6 Weeks R97.20 - Elevated prostate specific antigen [PSA] AMB Urinalysis Automated Today Z13.9 - Encounter for screening, unspecified Medications: New sulfamethoxazole-trimethoprim 800-160 mg (Bactrim DS) 1 tab PO BID 14 days 28 tabs 0RF N39.0 - Urinary tract infection, site not specified Changed From terazosin 5 mg PO BEDTIME 30 days 30 caps 3RF N40.1 - Benign prostatic hyperplasia with lower urinary tract symptoms, R35.0 - Frequency of micturition To terazosin 5 mg PO BEDTIME 90 days 90 caps 1RF N40.1 - Benign prostatic hyperplasia with lower urinary tract symptoms, R35.0 - Frequency of micturition Patient Instructions: The patient had an opportunity to ask questions regarding the treatment plan. All questions were answered. Physical exam, labs, and imaging were discussed and reviewed in detail. As well as risks, benefits, and discussion of treatment choices. No major barriers to understanding were identified. The patient expressed understanding and agreement with the above treatment plan. The patient was made aware they should contact our office by phone for worsening of their current condition, the appearance of new symptoms, or with any questions or concerns. Compliance is encouraged with any medications and follow up testing that is ordered. It is a privilege to be allowed the opportunity to participate in? your urological care.? Again, if you have any questions or concerns If you have any questions or concerns please do not hesitate to contact me. The office is [phone]. This note is constructed using voice recognition software. While every effort has been made to ensure accuracy roll capper errors may have been included. Yours sincerely, MINI Torres-GERARD Coding Level of Care Code Est Pt Level 4 (44105) Diagnoses Elevated PSA R97.20 Prostatitis N41.9 CPT Codes Post Residual Void - PVR CPT Code: 52655-[id number] Void Residual by ultrasound ([id number])
== END 2024-09-03 08:17 | disposition home or self-care (01) ==
PROVIDERS: PCP Family Medicine; Visit Provider Nurse Practitioner Family
DX: R97.20 Elevated prostate specific antigen [PSA] (principal); N41.9 Inflammatory disease of prostate, unspecified; Z13.9 Encounter for screening, unspecified
CPT/HCPCS: 99214

== ENCOUNTER → 2024-09-03 07:49 | Outpatient (BNVA) | payer OTHER, SELFPAY | PROVIDERS: PCP Family Medicine; Visit Provider Nurse Practitioner Family | DX: N41.9 Inflammatory disease of prostate, unspecified (principal); R97.20 Elevated prostate specific antigen [PSA] | CPT/HCPCS: 51798; 81003 ==

== ENCOUNTER 2024-09-14 08:36 | Outpatient (AMB) | payer OTHER, SELFPAY ==
--- NOTE | 2024-09-14 08:44 | MHC.PC.OV ---
Vital Signs 09/14/24 08:46 Height 6 ft Weight 295 lb 4 oz BMI 40.0 BP 128/60 Blood Pressure Location Lt brachial Position Sitting Respiration 16 Pulse 93 Pulse Source Pulse Oximeter Temp 97.2 F Temp Source Temporal Artery Scan Pulse Oximetry (%) 97 Oxygen Delivery Method Room Air Intake Visit Reasons: F/U DM Intake Note: f/u DM Allergies No Known Allergies Allergy (Verified 09/14/24 08:44) Tobacco use date assessed: 02/26/24 Dental Screening Dental Screen Date: 02/26/24 HPI F/U DM HPI Details 53 y/o male presents to f/u diabetes. Last A1c 6.6%. A1c today 09/14/24 6.5%. He is on metformin 750mg daily. Has not had a diabetic retinal exam yet. Blood pressure today 128/60, 93p. Follows up with Yisel Joel for elevated PSA, prostatitis. He is on terazosin. Has complaints of a hernia. [facility] Medical History (Updated 09/14/24 @ 09:09 by Broderikc Wolff) Screening for colon cancer Screening for prostate cancer Adult general medical exam Upper respiratory tract infection Laboratory exam ordered as part of routine general medical examination Sleep apnea Surgical History S/P Achilles tendon repair Family History Mother Breast cancer Lung cancer Father Diabetes Maternal Grandmother Thyroid disorder Maternal Grandfather Lung cancer Paternal Grandfather Diabetes Social History Housing: House Patient Tobacco Use Status: Never used Tobacco e-Cigarette/Vaping Use: Never Used service: No Current occupational status: employed 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 Cognitive needs: No Hearing needs: No Vision needs: No Questionnaire Thrive Questionnaire Date Thrive assessed: 12/25/23 I am a: Patient What is your living situation today?: I choose not to answer this question Within the past 12 months, did the food you bought not last and you didn't have the money to get more?: I choose not to answer this question Within the past 12 months, did you worry whether your food would run out before you got money to buy more?: I choose not to answer this question Do you have trouble paying for medicines?: I choose not to answer this question Do you have trouble getting transportation to medical appointments?: I choose not to answer this question Do you have trouble paying your heating and electricity bill?: I choose not to answer this question Do you have trouble taking care of your child, family member or friend?: I choose not to answer this question Do you have trouble with day-to-day activities such as bathing, preparing meals, shopping, managing finances, etc.?: I choose not to answer this question Are you currently unemployed and looking for a job?: I choose not to answer this question Are you interested in more education?: I choose not to answer this question Please select the resources that you would like help with: Transportation and None Currently or been in a relationship where the following occur: I choose not to answer THRIVE Score: 0 AUDIT C Alcohol Use Questionnaire (AUDIT-C) 1. How often do you have a drink containing alcohol?: Never Total Score: 0 SALBADOR-7 AMB Questionnaire SALBADOR-7 Date SALBADOR - 7 assessed: 12/25/23 Feeling nervous, anxious, or on edge: 0 = Not at all Not being able to stop or control worryin = Not at all Worrying too much about different things: 0 = Not at all Trouble relaxin = Not at all Being so restless that it is hard to sit still: 0 = Not at all Becoming easily annoyed or irritable: 0 = Not at all Feeling afraid as if something awful might happen: 0 = Not at all Total SALBADOR-7 score (0-4 normal; 5-9 mild; 10-14 moderate; 15-21 severe): 0 Source: Developed by Drs. Gus Palacios, Em Clancy, Fede Hood and colleagues, with an educational karina from [employer]. Review of Systems Const Denies chills, Denies fatigue, Denies fever(s), Denies headache(s) and Denies weakness ENT Denies dizziness and Denies headache(s) Card Denies dyspnea Resp Denies cough, Denies dyspnea, Denies wheezing and Denies other (shortness of breath) Musc Denies numbness and Denies tingling Neuro Denies dizziness, Denies headache(s), Denies numbness, Denies tingling and Denies weakness Psych Denies anxiety and Denies depression Endo Denies fatigue Aller/Immun Denies wheezing Physical exam (Primary Care) Vital Signs: Last Vital Signs Temp 97.2 F 09/14/24 08:46 Pulse 93 09/14/24 08:46 Resp 16 09/14/24 08:46 BP 128/60 09/14/24 08:46 Pulse Ox 97 09/14/24 08:46 Oxygen Delivery Method Room Air 09/14/24 08:46 BMI result Body Mass Index 40.0 Tobacco/Smoking Status: Tobacco use Status Tobacco use date assessed 02/26/24 09/14/24 08:49 Patient Tobacco Use Status Never used Tobacco 09/14/24 08:49 e-Cigarette/Vaping Use Never Used 09/14/24 08:49 Thrive Assessment: Date of Thrive Assessment Date Thrive assessed 12/25/23 09/14/24 08:49 Currently or been in a relationship where the following occur: I choose not to answer Const General: well developed; No acute distress Nutritional Appearance: well nourished and obese morbidly obese Orientation/consciousness: patient oriented x3 HENMT Head: Yes normocephalic and Yes atraumatic Eyes General: appearance normal, both eyes and all related structures Pupils: Equal, round and reactive pupils present EOM: EOMs intact bilaterally Resp Effort & Inspection: normal respiratory effort Auscultation: clear to auscultation bilaterally Cardio Rate: regular rate Rhythm: regular rhythm Heart sounds: S1 normal heart sound present, S2 normal heart sound present, no gallops, no murmurs and no rubs Neuro General: patient oriented x3 and gait normal Cranial nerves: Yes Equal, round and reactive pupils present Psych Affect: normal affect Results AMB Hemoglobin A1c AMB Hemoglobin A1c 6.5 % Last Edit by MICKEY Jeff on 09/14/24 09:12 Coding Level of Care Code Est Pt Level 4 (63234) Diagnoses Diabetes E11.9 Microalbuminuria R80.9 Elevated PSA R97.20 Screening for colon cancer Z12.11 Hernia K46.9 Assessment & Plan Assessment & Plan (1) Diabetes: Code(s): E11.9 - Type 2 diabetes mellitus without complications Category: Medical Plan: A1c?well?controlled?at?6.5%.??Goal?is?less?than?7% Continue?current?medication?regimen Overdue?for?Ophthalmology?diabetic?retinal?exam.??Had?made?referral?but?patient?had?problems?due?to?insurance. Will?make?another?referral (2) Microalbuminuria: Code(s): R80.9 - Proteinuria, unspecified Category: Medical Plan: Elevated?microalbumin?though?improving. Continue?to?work?on?diet?lower?in?sugars?and?starches.??Continue?current?diabetes?regimen Hydrate?well (3) Elevated PSA: Code(s): R97.20 - Elevated prostate specific antigen [PSA] Category: Medical Plan: [place] [place] Terazosin?is?helping?with?urinary?hesitancy Continue?to?follow-up?with?urology?as?recommended (4) Screening for colon cancer: Code(s): Z12.11 - Encounter for screening for malignant neoplasm of colon Category: Medical Plan: Patient?was?seen?by?Gastroenterology?for?evaluation?for?1st?screening?colonoscopy. He?has?not?yet?made?an?appointment?for?this?subsequently Encouraged?him?to?follow?through?on?colonoscopy (5) Hernia: Code(s): K46.9 - Unspecified abdominal hernia without obstruction or gangrene Category: Medical Plan: Patient?has?umbilical?hernia Referred?to?general?surgery. Orders: Orders AMB Hemoglobin A1c Today E11.9 - Type 2 diabetes mellitus without complications Microalbumin, Random (w Creat) Today I10 - Essential (primary) hypertension, R80.9 - Proteinuria, unspecified Comprehensive Met. Panel Today R80.9 - Proteinuria, unspecified Referrals Ophthalmology Referral E11.9 - Type 2 diabetes mellitus without complications General Surgery Referral K42.9 - Umbilical hernia without obstruction or gangrene
[2024-09-14 08:46] VITALS: BP 128/60; PULSE 93; RESP 16; TEMP 36.2; O2SAT 97; BMI 40.0
== END 2024-09-14 09:16 | disposition home or self-care (01) ==
PROVIDERS: PCP Family Medicine; Visit Provider Family Medicine
DX: E11.9 Type 2 diabetes mellitus without complications (principal); R80.9 Proteinuria, unspecified; R97.20 Elevated prostate specific antigen [PSA]; Z12.11 Encounter for screening for malignant neoplasm of colon; K46.9 Unspecified abdominal hernia without obstruction or gangrene

== ENCOUNTER → 2024-09-14 08:36 | Outpatient (BNVA) | payer OTHER, SELFPAY | PROVIDERS: PCP Family Medicine; Visit Provider Family Medicine | DX: E11.9 Type 2 diabetes mellitus without complications (principal); R80.9 Proteinuria, unspecified; R97.20 Elevated prostate specific antigen [PSA]; K42.9 Umbilical hernia without obstruction or gangrene | CPT/HCPCS: 83036 ==

== ENCOUNTER 2024-10-07 09:13 | Outpatient (AMB) | payer OTHER, SELFPAY ==
--- NOTE | 2024-10-07 09:17 | A.OFFVIS_ITS ---
Vital Signs 10/07/24 09:18 Height 6 ft Weight 295 lb BMI 40.0 Respiration 16 Pulse 90 Intake Visit Reasons: Umbilical hernia without obstruction or gangrene Intake Note: Patient is seen in office for evaluation and treatment of an umbilical hernia. Pt c/o: onset a couple of yrs, painful with activities, increase in size, reducible no prior abdominal surgery, denies n/v/d/c, no prior imaging Linen Folder Required: No Accompanied by: Self / Same As Patient Allergies No Known Allergies Allergy (Verified 10/07/24 09:18) HPI Comments Details: Patient presents with a symptomatic umbilical hernia. He has had this at least 2 years time. His increasing in size, become more symptomatic. He would like to have it repair. Patient was no other GI issues or complaints. He is tolerating his diet. He has regular bowel habits. He does moderately strenuous activities at his employment. Chart was reviewed and patient evaluate [facility] Medical History Screening for colon cancer Screening for prostate cancer Adult general medical exam Upper respiratory tract infection Laboratory exam ordered as part of routine general medical examination Sleep apnea Surgical History S/P Achilles tendon repair Family History Mother Breast cancer Lung cancer Father Diabetes Maternal Grandmother Thyroid disorder Maternal Grandfather Lung cancer Paternal Grandfather Diabetes Social History Housing: House Patient Tobacco Use Status: Never used Tobacco e-Cigarette/Vaping Use: Never Used service: No Current occupational status: employed 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 Bilateral groin exam negative. Genitalia within normal limits. Corpulent abdomen. Roughly 3 cm reducible umbilical hernia. Assessment & Plan Assessment & Plan (1) Umbilical hernia: Code(s): K42.9 - Umbilical hernia without obstruction or gangrene Category: Surgical Plan Risks, benefits, and alternatives of open umbilical hernia repair with mesh were reviewed with the patient and included but not limited to bleeding, infection, recurrence, numbness, pain, scarring and the patient wishes to proceed. All questions answered. Arrangements were made for this Coding Level of Care Code New Pt Level 5 (97924) Diagnoses Umbilical hernia K42.9
[2024-10-07 09:18] VITALS: PULSE 90; RESP 16; BMI 40.0
== END 2024-10-07 09:24 | disposition home or self-care (01) ==
PROVIDERS: PCP Family Medicine; Visit Provider Surgery
DX: K42.9 Umbilical hernia without obstruction or gangrene (principal)
CPT/HCPCS: 99204

== ENCOUNTER → 2024-10-07 09:13 | Outpatient (BNVA) | payer OTHER, SELFPAY | PROVIDERS: PCP Family Medicine; Visit Provider Surgery ==

== ENCOUNTER 2024-10-23 06:21 | Outpatient (REF) | payer OTHER, SELFPAY ==
[2024-10-23 08:52] LABS: PSA,Total (Free>4and<10) 2.43 ng/mL (0.00-4.00)
== END 2024-10-23 06:22 | disposition home or self-care (01) ==
LOC: HO.LAB 06:21
PROVIDERS: PCP Family Medicine; Visit Provider Nurse Practitioner Family
DX: R97.20 Elevated prostate specific antigen [PSA] (principal); Z12.5 Encounter for screening for malignant neoplasm of prostate
CPT/HCPCS: 36415; 84153

== ENCOUNTER 2024-10-26 08:04 | Outpatient (AMB) | payer OTHER, SELFPAY ==
--- NOTE | 2024-10-26 08:26 | A.OFFVIS_ITS ---
Intake Visit Reasons: 8w/PSA Intake Note: Patient presents today for follow up visit on: urinary hesitancy, and psa results PSA: 2.43 Urology Medications: none Blood Thinner: none PVR: 21ml's Associate Software Developer Required: No Accompanied by: Self / Same As Patient Allergies No Known Allergies Allergy (Verified 10/26/24 08:49) Medication List - Last Reconciled 10/26/24 by ZACK Torres metformin 750 mg (1.5 x 500 mg) PO DAILY 90 days peg 3350-electrolytes 236-22.74-6.74 -5.86 gram (Golytely) 240 mL PO Q10M 1 day terazosin 5 mg PO BEDTIME 90 days HPI Comments Details: Mark is a 53-year-old male patient of Dr. Castro. He has a past medical history of diabetes and sleep apnea. He presents to the office today for follow-up of his elevated PSA likely related to prostatitis. In discussion with the patient today he reports to be doing and feeling well. He reports lower urinary tract symptoms he had been experiencing have since subsided however he does continue to have urinary dribbling. He reports having completed antibiotic therapy as prescribed. Recent PSA results reviewed with the patient today as noted and trended below. PSA: 11/16 1.7, 08/18 10.1, 08/18 7.7 % free PSA 13%, 10/18 2.4 Previous workup has included a retroperitoneal ultrasound noting bilateral kidneys with no calculi, lesions, and or hydronephrosis. The bladder is well distended and normal. Bilateral jets are demonstrated. Pre void bladder volume is approximately 300 mL. Postvoid bladder volume is approximately 20 mL. Prostate volume measures approximately 43 mL. He discusses feeling terazosin h as been more helpful than Flomax and would like to continue. We discussed potential causes of elevated PSA. We discussed surveillance monitoring. In office urinalysis results reviewed with the patient today. We discussed at length potential causes of labile PSA. We discussed further treatment options and risks and benefits of these treatment options. All questions were answered. In office urinalysis results reviewed with the patient today. PVR 21 mL. He denies urinary urgency, urinary frequency, incontinence, nocturia, hematuria, foul smelling urine, flank pain, fever, and or chills. We discussed potential causes for lower urinary tract symptoms he is experiencing. We discussed affects of diabetes on lower urinary tract symptoms. He otherwise offers no other issues or concerns at this time. [facility] Medical History Screening for colon cancer Screening for prostate cancer Adult general medical exam Upper respiratory tract infection Laboratory exam ordered as part of routine general medical examination Sleep apnea Surgical History S/P Achilles tendon repair Family History Mother Breast cancer Lung cancer Father Diabetes Maternal Grandmother Thyroid disorder Maternal Grandfather Lung cancer Paternal Grandfather Diabetes Social History Housing: House Patient Tobacco Use Status: Never used Tobacco e-Cigarette/Vaping Use: Never Used service: No Current occupational status: employed 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 Cognitive needs: No Hearing needs: No Vision needs: No Review of Systems Const All systems reviewed & are unremarkable except as noted in HPI and below Physical Exam Const General: cooperative, healthy appearing, comfortable, no acute distress, well developed, alert and awake Orientation/consciousness: patient oriented x3 Limitations: no limitations HEENT Head: Yes normal to inspection, Yes normocephalic and Yes atraumatic Ears: hearing grossly normal bilaterally Eyes General: appearance normal, both eyes and all related structures Neck Neck: Yes normal visual inspection and Yes trachea midline Chest Chest palpation & inspection: normal inspection of the chest Resp Effort & Inspection: normal respiratory effort and able to speak in complete sentences Cardio Rate: regular rate GI Inspection: Yes normal to inspection General: Yes no CVA tenderness Back/Spine/Pelvis Back: no CVA tenderness Skin General skin exam: no rashes or lesions noted Neuro General: patient oriented x3 Extrem General: Yes normal to inspection Psych Appearance: grossly normal and well kempt Mental Status: mental status grossly normal Speech and movement: Normal speech and movement present and Clear speech present Affect: normal affect Attitude: cooperative Thought process: Normal thought process present Thought content: Normal thought content present Insight: Fair insight present (Psych) Judgement: Fair judgement present (Psych) Office Procedures Post Void Residual Post Residual Void Post Void Residual (PVR): 21 [id number] Void Residual by ultrasound Assessment & Plan Assessment & Plan (1) Elevated PSA: Code(s): R97.20 - Elevated prostate specific antigen [PSA] Category: Medical (2) Prostatitis: Code(s): N41.9 - Inflammatory disease of prostate, unspecified Category: Medical (3) Urinary dribbling: Code(s): N39.43 - Post-void dribbling Category: Medical Plan In office urinalysis results reviewed with the patient today; as noted above. PVR 21 mL. Recent PSA results reviewed with the patient today; as noted above. We discussed potential causes of elevated PSA, lower urinary tract symptoms patient was experiencing, and urinary dribbling. Information provided for pelvic floor exercises. Continue terazosin as discussed and prescribed. Will continue with surveillance monitoring of PSA. We discussed importance of managing diabetes for improvement in lower urinary tract symptoms as well as overall health and well-being. Will obtain PSA in 6 months. Follow-up in 6 months with PSA and PVR to be completed prior; or sooner with any issues, concerns, and or questions. Orders: Orders Prostate Specific Antigen 6 Months N39.43 - Post-void dribbling, N41.9 - Inflammatory disease of prostate, unspecified, R97.20 - Elevated prostate specific antigen [PSA] Patient Instructions: The patient had an opportunity to ask questions regarding the treatment plan. All questions were answered. Physical exam, labs, and imaging were discussed and reviewed in detail. As well as risks, benefits, and discussion of treatment choices. No major barriers to understanding were identified. The patient expressed understanding and agreement with the above treatment plan. The patient was made aware they should contact our office by phone for worsening of their current condition, the appearance of new symptoms, or with any questions or concerns. Compliance is encouraged with any medications and follow up testing that is ordered. It is a privilege to be allowed the opportunity to participate in? your urological care.? Again, if you have any questions or concerns If you have any questions or concerns please do not hesitate to contact me. The office is [phone]. This note is constructed using voice recognition software. While every effort has been made to ensure accuracy band edger errors may have been included. Yours sincerely, MINI Torres-GERARD Coding Level of Care Code Est Pt Level 3 (86893) Complex EM visit Add On G2211 Diagnoses Elevated PSA R97.20 Prostatitis N41.9 Urinary dribbling N39.43 CPT Codes Post Residual Void - PVR CPT Code: 82245-Qoji Void Residual by ultrasound ([id number])
== END 2024-10-26 08:47 | disposition home or self-care (01) ==
LOC: HO.HUSH 08:04
PROVIDERS: PCP Family Medicine; Visit Provider Nurse Practitioner Family
DX: R97.20 Elevated prostate specific antigen [PSA] (principal); N41.9 Inflammatory disease of prostate, unspecified; N39.43 Post-void dribbling
CPT/HCPCS: 99213

== ENCOUNTER → 2024-10-26 08:04 | Outpatient (BNVA) | payer OTHER, SELFPAY | PROVIDERS: PCP Family Medicine; Visit Provider Nurse Practitioner Family | DX: N39.43 Post-void dribbling (principal); N41.9 Inflammatory disease of prostate, unspecified; R97.20 Elevated prostate specific antigen [PSA] | CPT/HCPCS: 51798 ==

== ENCOUNTER 2024-10-31 12:46 | Emergency (ER) | payer OTHER, SELFPAY ==
[2024-10-31 12:56] VITALS: BP 155/88; PULSE 86; RESP 19; TEMP 36.6; O2SAT 97; BMI 40.0
--- NOTE | 2024-10-31 12:56 | ED.ABDPAIN ---
HPI - Abdominal Pain General Chief Complaint: Abdominal Pain Stated Complaint: bellybutton pain Time Seen by Provider: 10/31/24 20:17 Source: patient, RN notes reviewed and old records reviewed Mode of arrival: ambulatory Limitations: no limitations History of Present Illness ED Provider: Neto KAY narrative: 53-year-old male with past medical history significant for obesity, diabetes, umbilical hernia presents for evaluation of abdominal pain. The patient is due to have an umbilical hernia repair in [address] Paz The patient reports that while driving today he had a sudden onset of pain in his umbilicus. The pain lasted about 30 seconds. The pain radiated down to his groin. Currently he has a 1/10 pain. He has no nausea vomiting. No fevers or chills. He called the office of Dr. Paz and was referred to the ER for further evaluation Related Data Previous Rx's ?Medication ?Instructions ?Recorded metformin 500 mg tablet 750 mg (1.5 x 500 mg) PO DAILY 90 03/16/24 days #135 tabs peg 3350-electrolytes 236 240 ml PO Q10M 1 day #4,000 mL 08/12/24 gram-22.74 gram-6.74 gram-5.86 gram solution (Golytely) terazosin 5 mg capsule 5 mg PO BEDTIME 90 days #90 caps 10/26/24 Allergies Allergy/AdvReac Type Severity Reaction Status Date / Time No Known Allergies Allergy Verified 10/31/24 12:57 Review of Systems Constitutional: Denies body ache(s), Denies chills and Denies headache(s) Eyes: Denies blurry vision Denies vertigo, Denies dizziness and Denies headache(s) Cardiovascular: Denies chest pain, Denies chest pain at rest and Denies dyspnea Respiratory: Denies cough and Denies dyspnea Gastrointestinal: Reports abdominal pain, Denies nausea and Denies vomiting Musculoskeletal: Denies back pain Denies vertigo, Denies dizziness and Denies headache(s) [facility] Past Medical History Medical History Screening for colon cancer Screening for prostate cancer Adult general medical exam Upper respiratory tract infection Laboratory exam ordered as part of routine general medical examination Sleep apnea Surgical History S/P Achilles tendon repair Family History Family History Mother Breast cancer Lung cancer Father Diabetes Maternal Grandmother Thyroid disorder Maternal Grandfather Lung cancer Paternal Grandfather Diabetes Social History Social History Housing: House Patient Tobacco Use Status: Never used Tobacco e-Cigarette/Vaping Use: Never Used Advance Directives: No Advance Directives Information Provided: No Do you have a plan to hurt others: No Plan service: No Current occupational status: employed 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 Cognitive needs: No Hearing needs: No Vision needs: No Physical Exam ED Vital Signs: Vital Signs - 24 hr 10/31/24 12:56 10/31/24 20:28 10/31/24 20:31 Temperature 98 F 97.8 F 97.8 F Pulse Rate 86 87 87 Respiratory Rate 19 20 20 Blood Pressure 155/88 H 124/87 124/87 Pulse Oximetry 97 98 98 Oxygen Delivery Method Room Air Room Air Room Air BMI result Body Mass Index 40.0 Const General: healthy appearing, comfortable, no acute distress, alert and awake Nutritional Appearance: well nourished Orientation/consciousness: patient oriented x3 HENMT Head: Yes normocephalic and Yes atraumatic Eyes Eyelids: Yes eyelids normal Conjunctivae: conjunctivae normal Sclerae: sclerae normal Corneas: corneas normal Pupils: Equal, round and reactive pupils present EOM: EOMs intact bilaterally Neck Neck: Yes full ROM Resp Effort & Inspection: normal respiratory effort, able to speak in complete sentences and not labored Cardio Rate: regular rate Rhythm: regular rhythm GI Other: Patient has a periumbilical hernia which is easily reducible. There are no overlying skin changes such as erythema or necrosis. Inspection: No distended Palpation (GI): Soft to palpation, not firm, nontender, no guarding and not rigid Skin General skin exam: elasticity normal Neuro General: patient oriented x3 Cranial nerves: Yes Equal, round and reactive pupils present and Yes Bilaterally intact EOM present Cognition (Neuro): normal cognition Extrem Other: Moving all extremities well without any obvious deformities Course Course Course Narrative: This is a rapid medical exam. Deferred additional HPI, ROS, PE to primary provider. 53 yo male with history of DM here with complaints of pain at umbilicul hernia. Will obtain labs, UA. Plans to have surgical repair with Jackson here at [facility]. IRON Freeman APRN Medical Decision Making Medical Decision Making [facility] Narrative: 53-year-old male presents for evaluation of abdominal pain. He has a known umbilical hernia. It sounds as though when he called the office they were concerned about incarcerated hernia. Clinically, the patient's abdominal exam is benign and his hernia is easily reducible. The patient's labs are reassuring. He is currently pain-free. We will discharge the patient to follow up with his regularly scheduled umbilical hernia Differential Diagnosis Differential Diagnoses: The differential diagnosis associated with the presentation includes Umbilical hernia Incarcerated hernia Strangulated hernia Bowel obstruction Lab Data [facility] Lab Attestation statement: I reviewed the patient's lab results. No leukocytosis or anemia. Normal platelet count. No significant electrolyte abnormalities. Renal function is normal 10/31/24 14:06 12 14:06 Labs: Lab Results 10/31/24 Range/Units 14:06 WBC 8.8 (4.8-10.8) X10*3/uL RBC 5.29 (4.60-5.80) X10*6/uL Hgb 14.9 (14.0-18.0) g/dl Hct 43.0 (42.0-52.0) % MCV 81.3 (80.0-98.0) fL MCH 28.2 (27.0-33.0) pg MCHC 34.7 (31.0-36.0) g/dl RDW 14.0 (11.0-16.0) % Plt Count 241 (160-400) X10*3/uL MPV 9.1 L (9.4-12.4) fL Immature Gran % (Auto) 1.0 H (0.0-0.4) % Neut % (Auto) 61.5 (45-73) % Lymph % (Auto) 24.2 (20-40) % [place] % (Auto) 8.9 (2-11) % Eos % (Auto) 3.9 (0-4) % Baso % (Auto) 0.5 (0-2) % Lymph # (Auto) 2.1 (1.2-4.9) X10*3/uL [place] # (Auto) 0.8 (0.1-1.2) X10*3/uL Eos # (Auto) 0.3 (0.0-0.4) X10*3/uL Baso # (Auto) 0.0 (0.0-0.2) X10*3/uL Abs Immat Gran (auto) 0.09 H (0.00-0.03) X10*3/uL Absolute Neuts (auto) 5.4 (2.0-8.3) x10*3/uL Absolute Nucleated RBC 0.000 (0.0-0.012) X10*3/uL Nucleated RBC % (auto) 0.0 (0.0-0.2) /100WBC Sodium 140 (135-145) mmol/L Potassium 3.9 (3.3-5.1) mmol/L Chloride 105 (96-108) mmol/L Carbon Dioxide 25 (22-29) mmol/L Anion Gap 14 (12-20) BUN 19 H (9-16) mg/dL Creatinine 1.01 (0.5-1.4) mg/dL Estim Creat Clear Calc 119.7 Estimated GFR > 60 Random Glucose 160 H (60-115) mg/dL Calcium 9.3 (8.4-10.2) mg/dL Total Bilirubin 0.4 (0.0-1.0) mg/dL Direct Bilirubin 0.1 (0.0-0.5) mg/dL AST 20 (5-37) U/L ALT 35 (0-40) U/L Alkaline Phosphatase 84 (39-117) U/L Total Protein 7.1 (6.5-8.0) g/dL Albumin 4.2 (3.5-5.0) g/dL Lipase 13 (8-78) U/L Discharge Plan Discharge Clinical Impression: Abdominal pain, Hernia, umbilical Patient Disposition: Home, Self-Care Instructions: Umbilical Hernia (ED), Umbilical Hernia Repair (DC) Additional Instructions: Your blood work was all reassuring today. Your hernia is not incarcerated You may follow-up with Dr. Paz for your scheduled surgery Return for new or worsening symptoms Prescriptions: No Action metformin 500 mg tablet 750 mg PO DAILY 90 Days Qty: 135 2RF terazosin 5 mg capsule 5 mg PO BEDTIME 90 Days Qty: 90 2RF peg 3350-electrolytes [Golytely] 236-22.74-6.74 -5.86 gram recon soln 240 ml PO Q10M 1 Days Qty: 4000 0RF Rx Instructions: until fecal effluent is clear; do not exceed a total volume of 2,000 mL Stand Alone Forms: Work/School Release Interventions: ED Discharge Assessment Last Done: 10/31/24 20:31 Discharge Date/Time: 10/31/24 20:56 Print Language: Citizen Of [place]
[2024-10-31 14:10] LABS: MANUAL DIFF FLAG NO
[2024-10-31 14:11] LABS: Basophils Percent Auto 0.5 % (0-2); Eosinophils Absolute Auto 0.3 X10*3/uL (0.0-0.4); Eosinophils Percent Auto 3.9 % (0-4); Hemoglobin 14.9 g/dl (14.0-18.0); Imm Gran Abs Auto 0.09 X10*3/uL (0.00-0.03); Lymphocytes Absolute Auto 2.1 X10*3/uL (1.2-4.9); Lymphocytes Percent Auto 24.2 % (20-40); Mean Corpuscular HGB Conc 34.7 g/dl (31.0-36.0); Mean Corpuscular Hemoglobin 28.2 pg (27.0-33.0); Mean Corpuscular Volume 81.3 fL (80.0-98.0); Mean Platelet Volume 9.1 fL (9.4-12.4); Monocytes Absolute Auto 0.8 X10*3/uL (0.1-1.2); Monocytes Percent Auto 8.9 % (2-11); Neutrophils Absolute Auto 5.4 x10*3/uL (2.0-8.3); Neutrophils Percent Auto 61.5 % (45-73); Platelet Count 241 X10*3/uL (160-400); Red Blood Count 5.29 X10*6/uL (4.60-5.80); White Blood Count 8.8 X10*3/uL (4.8-10.8)
[2024-10-31 14:25] LABS: Albumin Level 4.2 g/dL (3.5-5.0); Alkaline Phosphatase 84 U/L (39-117); Anion Gap 14 (12-20); Aspartate Amino Transferase 20 U/L (5-37); Bilirubin Direct 0.1 mg/dL (0.0-0.5); Bilirubin Total 0.4 mg/dL (0.0-1.0); Blood Urea Nitrogen 19 mg/dL (9-16); Calcium 9.3 mg/dL (8.4-10.2); Carbon Dioxide 25 mmol/L (22-29); Chloride 105 mmol/L (96-108); Creatinine Clr Calc Pharmacy 119.7; Estimated Glomerular Filt Rate > 60; Glucose Random 160 mg/dL (60-115); Lipase 13 U/L (8-78); Potassium 3.9 mmol/L (3.3-5.1); Sodium 140 mmol/L (135-145); Total Protein 7.1 g/dL (6.5-8.0)
[2024-10-31 14:37] LABS: Alanine Aminotransferase 35 U/L (0-40)
[2024-10-31 20:28] VITALS: BP 124/87; PULSE 87; RESP 20; TEMP 36.6; O2SAT 98
[2024-10-31 20:31] VITALS: BP 124/87; PULSE 87; RESP 20; TEMP 36.6; O2SAT 98
== END 2024-10-31 20:56 | disposition home or self-care (01) ==
PROVIDERS: Nurse Practitioner Family; Emergency Provider Emergency Medicine; PCP Family Medicine
DX: R10.9 Unspecified abdominal pain (principal); K42.9 Umbilical hernia without obstruction or gangrene
CPT/HCPCS: 36415; 80048; 80076; 83690; 85025; 99282; 99283

== ENCOUNTER 2024-11-05 06:06 | Day surgery (SDC) | payer OTHER, SELFPAY ==
--- NOTE | 2024-11-03 13:47 | P.CONAN_ITS ---
Documented by User: Harmony Singh NP 11/03/24 13:47 HPI - Anesthesia Eval Consult details Narrative: 53yo M for Open Hernia Umbilical Reducible with mesh BMI 40 PMFSH Active Problems Active Problems: All Active Problems Urinary dribbling (Acute) Umbilical hernia (Acute) Hernia (Acute) Screening for colon cancer (Acute) Prostatitis (Acute) Pre-op examination (Acute) Elevated PSA (Acute) Weak urinary stream (Acute) Rupture of right Achilles tendon (Acute) Night sweats (Acute) Diabetes (Acute) Microalbuminuria (Acute) Urinary hesitancy (Acute) Elevated fasting glucose (Acute) Sleep apnea (Acute) Eye irritation (Acute) Fungal infection of nail (Acute) Muscle spasm (Acute) Past Medical History Medical History (Updated 11/03/24 @ 16:17 by Angy Bonds RN) Screening for prostate cancer Screening for colon cancer Adult general medical exam Laboratory exam ordered as part of routine general medical examination Sleep apnea Upper respiratory tract infection Family History Family History Mother Breast cancer Lung cancer Father Diabetes Maternal Grandmother Thyroid disorder Maternal Grandfather Lung cancer Paternal Grandfather Diabetes Surgical History Surgical History (Updated 11/03/24 @ 16:17 by Angy Bonds RN) S/P Achilles tendon repair (02/2024) Social History Social History (Updated 11/03/24 @ 16:19 by Angy Bonds RN) Household Members: Family Housing: House Are you a primary care transition coordinator to a significant other at home: No Do you presently have visiting nurse or other home services: No Patient Tobacco Use Status: Never used Tobacco e-Cigarette/Vaping Use: Never Used Use of substances other than those prescribed or required for medical reasons: No Have you been hit, kicked, punched, or otherwise hurt by someone within the past year? 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 Cognitive needs: No Hearing needs: No Vision needs: No Meds Allergies Allergy/AdvReac Type Severity Reaction Status Date / Time No Known Allergies Allergy Verified 11/05/24 06:26 Exam Pertinent Lab Results Pertinent Lab Results: Laboratory Tests 10/31/24 14:06 WBC 8.8 Hgb 14.9 Hct 43.0 Plt Count 241 Sodium 140 Potassium 3.9 Chloride 105 Carbon Dioxide 25 BUN 19 H Creatinine 1.01 Assessment and Plan Assessment Anesthesia Assessment: Chart Reviewed Documented by User: Dorys Ordoñez MD 11/05/24 07:22 [facility] Past Medical History Medical History (Updated 11/03/24 @ 16:17 by Angy Bonds RN) Screening for prostate cancer Screening for colon cancer Adult general medical exam Laboratory exam ordered as part of routine general medical examination Sleep apnea Upper respiratory tract infection Family History Family History Mother Breast cancer Lung cancer Father Diabetes Maternal Grandmother Thyroid disorder Maternal Grandfather Lung cancer Paternal Grandfather Diabetes Family history of problems with anesthesia: No Surgical History Surgical History (Updated 11/03/24 @ 16:17 by Angy Bonds RN) S/P Achilles tendon repair (02/2024) History of Problems with Anesthesia: No Social History Social History (Updated 11/03/24 @ 16:19 by Angy Bonds RN) Household Members: Family Housing: House Are you a primary care transition coordinator to a significant other at home: No Do you presently have visiting nurse or other home services: No Patient Tobacco Use Status: Never used Tobacco e-Cigarette/Vaping Use: Never Used Use of substances other than those prescribed or required for medical reasons: No Have you been hit, kicked, punched, or otherwise hurt by someone within the past year? 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 Cognitive needs: No Hearing needs: No Vision needs: No Meds Allergies Allergy/AdvReac Type Severity Reaction Status Date / Time No Known Allergies Allergy Verified 11/05/24 06:26 Exam Airway Mallampati Class: II (thick neck) TM Dist: >3cm Neck ROM: Full Heart: rrr Lungs: cta Assessment and Plan Assessment Anesthesia Assessment: Anesthesia Plan Discussed Final Anesthetic Review Family History of Problems with Anesthesia: No History of Problems with Anesthesia: No NPO: Yes ASA Class: III Final Preanesthetic Review: No Changes in Pt Med Stat, Meds/Allgs Chart Reviewed and Consent Obtained/Reviewed Patient Risk: Intermediate Procedure Risk: Low Anesthetic Plan Anesthetic Plan: GA Disposition: Standard PACU
[2024-11-03 16:05] VITALS: BMI 40.0
[2024-11-03 16:15] VITALS: BMI 40.0
--- NOTE | 2024-11-04 09:31 | P.HPSUR_ITS ---
Pre-Procedural Eval Section A - 24 Hr Update-Section A only Date of Service: 11/05/24 The patient is an INPATIENT: No Changes since office visit: No Cold of Flu in the past 2 weeks, No New Medical Problems, No Changes in Medication and No Patient answered all questions Section B - Complete if H&P > 30 days Chief Complaint: Umbilical hernia without obstruction or gangrene Allergies: Allergies Allergy/AdvReac Type Severity Reaction Status Date / Time No Known Allergies Allergy Verified 10/31/24 12:57 Review of Systems Sugical H&P ROS: Negative: Constitution, Cardiovascular, Respiratory, Neurological, Psychiatric, Hem-Onc, Allergic/Immunologic, Gastrointestinal, Genitourinary, Musculoskeletal, Integumentary, Endocrine and Ey es/Ears/Nose/Throat Exam Surgical H&P Exam: Normal: HEENT, Normal: Heart, Normal: Lungs, Normal: Extremities, Normal: Abdomen, Normal: Skin and Normal: Neurological Plan I have reviewed the history and physical and performed a pertinent physical examination on my patient. No changes have occurred unless specified. Time Spent With Patient Time: Total time managing care of this patient today ____ minutes.
[2024-11-05 06:26] VITALS: BMI 40.4
[2024-11-05 06:30] VITALS: BP 133/81; PULSE 80; RESP 18; TEMP 36.6; O2SAT 96
[2024-11-05 06:55] LABS: Glucose, Whole Blood 133 mg/dL (60-115)
[2024-11-05] MEDS: Lactated Ringers 1,000 ML 100 ML IVCONT (06:59)
--- NOTE | 2024-11-05 08:15 | W.PM.OPN ---
Operative Note Operative Note Date of Service: 11/05/24 Narrative: Preoperative diagnosis: [] Large Incarcerated umbilical hernia Postop diagnosis: [] The same Procedure [] open incarcerated umbilical hernia repair with mesh Surgeon: [] Jackson [employer] Application Developer: [] Vinny Type of Anesthesia: [] General Indication for surgery: [] Very corpulent abdomen. Roughly 4 cm incarcerated umbilical hernia with omental contents Findings: [] Patient brought to the operating room, placed on operative table supine position, after an adequate level of general anesthesia was induced, the patient's abdomen was prepped and draped in usual sterile fashion using a supraumbilical curvilinear incision, this carried down through skin, subcutaneous tissue, where hernia sac was identified, dissected off the posterior aspect of the umbilicus and dissected down through the fascia. Sac was opened were incarcerated omental contents and sac were amputated using Bovie. Fascia margins were circumferentially cleared. Inappropriately sized Bard mesh was placed in this defect, and the superficial layer of the mesh was sutured circumferentially to surrounding fascia using interrupted 0 Ethibond suture. At completion of procedure, mesh was in good position with no gaps or tension. Wound was irrigated and secured hemostasis. Was closed in the following manner; posterior aspect of the umbilicus was tacked to the wound floor using interrupted 3-0 Vicryl sutures. Skin was closed using interrupted Inverted dermal 3-0 Vicryl sutures followed by Steri-Strips and sterile dressings. Wound was infiltrated 0.5% Marcaine/1% lidocaine. Sponge, needle, and instrument counts were reported correct. Patient tolerated the procedure well and emerged from anesthesia stable condition. EBL minimal
[2024-11-05 08:25] VITALS: BP 140/91; PULSE 87; RESP 16; TEMP 36.3; O2SAT 99
[2024-11-05 08:30] VITALS: BP 117/69; PULSE 83; RESP 16; O2SAT 99
[2024-11-05 08:35] VITALS: BP 117/65; PULSE 86; RESP 16; O2SAT 99
[2024-11-05 08:40] VITALS: BP 125/61; PULSE 83; RESP 16; O2SAT 96
[2024-11-05 08:55] VITALS: BP 131/81; PULSE 84; RESP 16; TEMP 36.3; O2SAT 96
== END 2024-11-05 09:33 | disposition home or self-care (01) ==
PROVIDERS: PCP Family Medicine; Visit Provider Surgery
PROC: (CPT 49594; principal; 2024-11-05 07:30)
DX: K42.0 Umbilical hernia with obstruction, without gangrene (principal); E65 Localized adiposity; N41.9 Inflammatory disease of prostate, unspecified; R39.12 Poor urinary stream; E11.9 Type 2 diabetes mellitus without complications; J06.9 Acute upper respiratory infection, unspecified; M62.838 Other muscle spasm; G47.33 Obstructive sleep apnea (adult) (pediatric); Z99.89 Dependence on other enabling machines and devices; Z79.84 Long term (current) use of oral hypoglycemic drugs; Z79.899 Other long term (current) drug therapy
CPT/HCPCS: 49594; 82947; 88304; C1781; J0330; J0690; J1885; J2003; J2250; J2704; J2795; J3010; Q9967

== ENCOUNTER → 2024-11-05 06:06 | Outpatient (BNV) | payer OTHER, SELFPAY | PROVIDERS: PCP Family Medicine; Visit Provider Surgery | DX: K42.0 Umbilical hernia with obstruction, without gangrene (principal) | CPT/HCPCS: 49594 ==

== ENCOUNTER 2024-11-12 09:09 | Outpatient (AMB) | payer OTHER, SELFPAY ==
--- NOTE | 2024-11-12 09:11 | MHC.OFFVIS ---
Vital Signs 11/12/24 09:17 Height 6 ft Weight 300 lb 8 oz BMI 40.8 BP 130/72 Blood Pressure Location Rt brachial Position Sitting Respiration 16 Pulse 81 Pulse Source Pulse Oximeter Temp 97.9 F Temp Source Oral Pulse Oximetry (%) 98 Oxygen Delivery Method Room Air Intake Visit Reasons: Allergy , Intake Note: patient here c/o allergies he has a rash all over his body. Inspector Materials And Processes Required: No Allergies No Known Allergies Allergy (Verified 11/12/24 09:24) Medication List - Last Reconciled 11/12/24 by Nahomi Denson CNP hydrocodone-acetaminophen 5-325 mg 1 tab PO Q4H PRN metformin 750 mg (1.5 x 500 mg) PO DAILY 90 days peg 3350-electrolytes 236-22.74-6.74 -5.86 gram (Golytely) 240 mL PO Q10M 1 day terazosin 5 mg PO BEDTIME 90 days Do you need a note to return to daycare/school/sports/work: No HPI Comments Details: 53-year-old male presents with complaints of rash to his face, anterior and posterior trunk, upper arms, and legs. He notes that the rash is very itching. The onset is yesterday and has been spreading. Denies new food/drink in his diet, body products (lotion, soap), laundry detergent. Denies environmental exposure to chemicals. No new medication. He took some benadryl last night and this morning without improvement. He recently had umbilical hernia repair and incision healing well. [facility] Medical History (Updated 11/12/24 @ 09:51 by Nahomi Denson CNP) Screening for prostate cancer Screening for colon cancer Adult general medical exam Laboratory exam ordered as part of routine general medical examination Sleep apnea Upper respiratory tract infection Surgical History (Updated 11/03/24 @ 16:17 by Angy Bonds RN) S/P Achilles tendon repair (02/2024) Family History Mother Breast cancer Lung cancer Father Diabetes Maternal Grandmother Thyroid disorder Maternal Grandfather Lung cancer Paternal Grandfather Diabetes Social History (Updated 11/03/24 @ 16:19 by Angy Bonds RN) Household Members: Family Housing: House Are you a primary lawn caretaker to a significant other at home: No Do you presently have visiting nurse or other home services: No Patient Tobacco Use Status: Never used Tobacco e-Cigarette/Vaping Use: Never Used service: No Current occupational status: employed 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 Cognitive needs: No Hearing needs: No Vision needs: No Review of Systems Const Details: Const Denies chills, Denies fatigue, Denies fever(s), Denies headache(s) and Denies weakness ENT Denies dizziness and Denies headache(s) Card Denies chest pain, Denies lightheadedness, Denies dyspnea and Denies other (Palpitations) Resp Denies cough, Denies dyspnea, Denies wheezing and Denies other ( shortness of breath) GI Denies abdominal pain, Denies melena, Denies hematochezia, Denies change in bowel habits, Denies dyspepsia and Denies nausea Denies hematuria and Denies dysuria Musc Denies abnormal gait, Denies myalgias, Denies arthralgias, Denies numbness and Denies tingling Skin/Breast Reports as per HPI Neuro Denies abnormal gait, Denies dizziness, Denies headache(s), Denies memory loss, Denies numbness, Denies Sensory deficit (Neuro), Denies tingling and Denies weakness Psych Denies anxiety, Denies depression, Denies memory loss Endo Denies cold intolerance, Denies fatigue, Denies heat intolerance, Denies polydipsia and Denies polyuria Aller/Immun Denies wheezing Physical Exam Const Other: General: no acute distress and well developed Nutritional Appearance: well nourished Orientation/consciousness: patient oriented x3 HENMT Head: Yes normocephalic and Yes atraumatic Eyes General: appearance normal, both eyes and all related structures Pupils: Equal, round and reactive pupils present EOM: EOMs intact bilaterally Resp Effort & Inspection: normal respiratory effort Auscultation: clear to auscultation bilaterally Cardio Rate: regular rate Rhythm: regular rhythm Heart sounds: S1 normal heart sound present, S2 normal heart sound present, no gallops, no murmurs and no rubs GI Palpation (GI): No Abdominal aortic bruit present, Soft to palpation, nontender, No hepatosplenomegaly present and No Rebound tenderness present Auscultation: normal bowel sounds General: Yes no CVA tenderness Back/Spine/Pelvis Back: no CVA tenderness Cervical Spine: cervical ROM normal and No Cervical spine tenderness Thoracic/Lumbar Spine: thoraco-lumbar ROM normal, No pain with thoraco-lumbar ROM, No thoracic spinal tenderness and No lumbar spinal tenderness Extrem General: Yes normal to inspection, No edema and No calf tenderness Skin General: warm and dry. Normal skin color. Normal skin turgor Lesions: no lesions Rashes: Widespread hives to the face, anterior and posterior trunk, upper arms, and legs Trauma: no lacerations or abrasions Wounds: no wounds Nails: normal Neuro General: patient oriented x3, gait normal and no focal neuro deficit Cranial nerves: Yes Equal, round and reactive pupils present Cognition (Neuro): normal cognition Gait exam (Neuro): Normal gait present Sensory Exam: No Sensory deficit (Neuro) Psych Appearance: grossly normal Affect: normal affect Attitude: cooperative Thought process: Normal thought process present Assessment & Plan Assessment & Plan (1) Allergic rash present on examination: Code(s): T78.40XA - Allergy, unspecified, initial encounter Category: Medical Plan: Widespread hives to the face, anterior and posterior trunk, upper arms. Started yesterday and continues to spread. Causes unknown. However, contact dermatitis is likely. Order prednisone 20 mg daily for 5 days. Take prednisone 25-50 mg 3 times daily as needed. EpiPen ordered for difficulty breathing or anaphylaxis; advised to go to the ED after use of EpiPen. May take cool shower. Encouraged to wash clothes properly. Return with worsening or new symptoms. Verbalized understanding and agreed with the plan. Medications: New prednisone 20 mg PO DAILY 5 days 5 tabs 0RF epinephrine (EpiPen) May repeat dose x1 after 5-15 minutes. Go to the ED after first use. 0.3 mg (0.3 mL) IM Q10M PRN 2 ea 0RF anaphylaxis Coding Level of Care Code Tele New Pt Level 4 (48542) Diagnoses Allergic rash present on examination T78.40XA
[2024-11-12 09:17] VITALS: BP 130/72; PULSE 81; RESP 16; TEMP 36.6; O2SAT 98; BMI 40.8
== END 2024-11-12 10:02 | disposition home or self-care (01) ==
PROVIDERS: PCP Family Medicine; Visit Provider Nurse Practitioner Family
DX: T78.40XA Allergy, unspecified, initial encounter (principal)

== ENCOUNTER → 2024-11-12 09:09 | Outpatient (BNVA) | payer OTHER, SELFPAY | PROVIDERS: PCP Family Medicine; Visit Provider Nurse Practitioner Family ==

== ENCOUNTER 2024-11-16 10:36 | Outpatient (AMB) | payer OTHER, SELFPAY ==
--- NOTE | 2024-11-16 10:40 | MHC.OFFVIS ---
Intake Visit Reasons: S/P umbilical hernia w/mesh Intake Note: Patient post op for S/P umbilical hernia w/mesh Patient cc: still sore after umbilical hernia removal and hives after surgery. Anchorman Required: No Accompanied by: Self / Same As Patient Allergies No Known Allergies Allergy (Verified 11/16/24 10:39) HPI Comments Details: Patient presents status post umbilical hernia repair. Aside from incisional discomfort is doing well. Starting a diet. Having regular bowel habits. He is increasing his activity level. [facility] Medical History (Updated 11/12/24 @ 09:51 by Nahomi Denson CNP) Screening for prostate cancer Screening for colon cancer Adult general medical exam Laboratory exam ordered as part of routine general medical examination Sleep apnea Upper respiratory tract infection Surgical History Umbilical hernia (11/05/24) S/P Achilles tendon repair (02/2024) Family History Mother Breast cancer Lung cancer Father Diabetes Maternal Grandmother Thyroid disorder Maternal Grandfather Lung cancer Paternal Grandfather Diabetes Social History Household Members: Family Housing: House Are you a primary rn home care to a significant other at home: No Do you presently have visiting nurse or other home services: No Patient Tobacco Use Status: Never used Tobacco e-Cigarette/Vaping Use: Never Used service: No Current occupational status: employed 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 Incision clean dry and intact healing well Assessment & Plan Assessment & Plan (1) Status post umbilical hernia repair, follow-up exam: Code(s): Z09 - Encounter for follow-up examination after completed treatment for conditions other than malignant neoplasm Category: Medical Plan Patient was been given local instructions including avoiding strenuous activities next 4-6 weeks time. Note was provided for work. He will otherwise follow-up p.r.n.. All questions answered Coding Level of Care Code Global (12650) Diagnoses Status post umbilical hernia repair, follow-up exam Z09
== END 2024-11-16 10:51 | disposition home or self-care (01) ==
PROVIDERS: PCP Family Medicine; Visit Provider Surgery
DX: Z09 Encounter for follow-up examination after completed treatment for conditions other than malignant neoplasm (principal)
CPT/HCPCS: 99212

== ENCOUNTER 2025-01-18 08:33 | Outpatient (AMB) | payer OTHER, SELFPAY ==
--- NOTE | 2025-01-18 08:47 | MHC.PC.OV ---
Vital Signs 01/18/25 08:54 Height 6 ft Weight 292 lb 6 oz BMI 39.6 BP 126/70 Blood Pressure Location Lt brachial Position Sitting Pulse 80 Pulse Source Pulse Oximeter Temp 98.2 F Temp Source Oral Pulse Oximetry (%) 96 Oxygen Delivery Method Room Air Intake Visit Reasons: f/u diabetes Intake Note: f/u DM Data Entry Machine Operator Required: No Allergies No Known Allergies Allergy (Verified 01/18/25 08:47) Medication List - Last Reconciled 01/18/25 by Edouard Castro MD epinephrine (EpiPen) 0.3 mg (0.3 mL) IM Q10M PRN hydrocodone-acetaminophen 5-325 mg 1 tab PO Q4H PRN metformin 750 mg (1.5 x 500 mg) PO DAILY 90 days peg 3350-electrolytes 236-22.74-6.74 -5.86 gram (Golytely) 240 mL PO Q10M 1 day terazosin 5 mg PO BEDTIME 90 days Tobacco use date assessed: 02/26/24 Dental Screening Dental Screen Date: 02/26/24 HPI f/u diabetes HPI Details 54 y/o male presents to f/u diabetes, microalbuminuria. Last A1c 09/14/24 6.5%. A1c today 01/18/25 is 6.3%. He is on metformin 750mg daily. Reports ongoing fungal infection of his toes. [facility] Medical History (Updated 11/12/24 @ 09:51 by Nahomi Denson CNP) Screening for prostate cancer Screening for colon cancer Adult general medical exam Laboratory exam ordered as part of routine general medical examination Sleep apnea Upper respiratory tract infection Surgical History Umbilical hernia (11/05/24) S/P Achilles tendon repair (02/2024) Family History Mother Breast cancer Lung cancer Father Diabetes Maternal Grandmother Thyroid disorder Maternal Grandfather Lung cancer Paternal Grandfather Diabetes Social History Household Members: Family Housing: House Are you a primary field care coordinator to a significant other at home: No Do you presently have visiting nurse or other home services: No Patient Tobacco Use Status: Never used Tobacco e-Cigarette/Vaping Use: Never Used service: No Current occupational status: employed 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 1. Little interest or pleasure in doing things: not at all 2. Feeling down, depressed, or hopeless: not at all 3. Trouble falling or staying asleep, or sleeping too much: not at all 4. Feeling tired or having little energy: several days 5. Poor appetite or overeating: several days 6. Feeling bad about yourself - or that you are a failure or have let yourself or your family down: not at all 7. Trouble concentrating on things, such as reading the newspaper or watching television: not at all 8. Moving or speaking so slowly that other people could have noticed. Or the opposite - being so fidgety or restless that you have been moving around a lot more than usual: not at all 9. Thoughts that you would be better off or of hurting yourself in some way: not at all Total score: 2 Source: Developed by Drs. Gus Palacios, Em Clancy, Fede Hood and colleagues, with an educational karina from [employer]. Thrive Questionnaire Date Thrive assessed: 01/15/25 I am a: Patient What is your living situation today?: I have a steady place to live Within the past 12 months, did the food you bought not last and you didn't have the money to get more?: Never true Within the past 12 months, did you worry whether your food would run out before you got money to buy more?: Never true Do you have trouble paying for medicines?: No Do you have trouble getting transportation to medical appointments?: No Do you have trouble paying your heating and electricity bill?: No Do you have trouble taking care of your child, family member or friend?: No Do you have trouble with day-to-day activities such as bathing, preparing meals, shopping, managing finances, etc.?: No Are you currently unemployed and looking for a job?: No Are you interested in more education?: Yes Please select the resources that you would like help with: None Currently or been in a relationship where the following occur: No concerns reported THRIVE Score: 0 AUDIT C Alcohol Use Questionnaire (AUDIT-C) 1. How often do you have a drink containing alcohol?: Monthly or less 2. How many drinks containing alcohol do you have on a typical day when you are drinking?: 1 or 2 3. How often do you have six or more drinks on one occasion?: Never Total Score: 1 SALBADOR-7 AMB Questionnaire SALBADOR-7 Date SALBADOR - 7 assessed: 12/25/23 Feeling nervous, anxious, or on edge: 0 = Not at all Not being able to stop or control worryin = Not at all Worrying too much about different things: 0 = Not at all Trouble relaxin = Not at all Being so restless that it is hard to sit still: 0 = Not at all Becoming easily annoyed or irritable: 0 = Not at all Feeling afraid as if something awful might happen: 0 = Not at all Total SALBADOR-7 score (0-4 normal; 5-9 mild; 10-14 moderate; 15-21 severe): 0 Source: Developed by Drs. Gus Palacios, Em Clancy, Fede Hood and colleagues, with an educational karina from [employer]. Review of Systems Const Denies chills, Denies fatigue, Denies fever(s), Denies headache(s) and Denies weakness ENT Denies dizziness and Denies headache(s) Card Denies dyspnea Resp Denies cough, Denies dyspnea, Denies wheezing and Denies other (shortness of breath) Musc Denies numbness and Denies tingling Neuro Denies dizziness, Denies headache(s), Denies numbness, Denies tingling and Denies weakness Psych Denies anxiety and Denies depression Endo Denies fatigue Aller/Immun Denies wheezing Physical exam (Primary Care) Vital Signs: Last Vital Signs Temp 98.2 F 01/18/25 08:54 Pulse 80 01/18/25 08:54 BP 126/70 01/18/25 08:54 Pulse Ox 96 01/18/25 08:54 Oxygen Delivery Method Room Air 01/18/25 08:54 BMI result Body Mass Index 39.6 Tobacco/Smoking Status: Tobacco use Status Tobacco use date assessed 02/26/24 01/18/25 08:49 Patient Tobacco Use Status Never used Tobacco 01/18/25 08:49 e-Cigarette/Vaping Use Never Used 01/18/25 08:49 PHQ-9: PHQ-9 Score PHQ-9: Total score 2 01/18/25 09:09 Thrive Assessment: Date of Thrive Assessment Date Thrive assessed 01/15/25 01/18/25 08:49 Currently or been in a relationship where the following occur: No concerns reported Const General: well developed; No acute distress Nutritional Appearance: well nourished Orientation/consciousness: patient oriented x3 HENMT Head: Yes normocephalic and Yes atraumatic Eyes General: appearance normal, both eyes and all related structures Pupils: Equal, round and reactive pupils present EOM: EOMs intact bilaterally Resp Effort & Inspection: normal respiratory effort Auscultation: clear to auscultation bilaterally Cardio Rate: regular rate Rhythm: regular rhythm Heart sounds: S1 normal heart sound present, S2 normal heart sound present, no gallops, no murmurs and no rubs Neuro General: patient oriented x3 and gait normal Cranial nerves: Yes Equal, round and reactive pupils present Psych Affect: normal affect Results AMB Hemoglobin A1c AMB Hemoglobin A1c 6.3 % Last Edit by Sukumar Norwood CMA on 01/18/25 09:05 Results Reviewed Results Reviewed: Laboratory Last Values Hgb A1c (Clinic) 6.3 % (4.0-6.0) H 01/18/25 09:04 Coding Level of Care Code Est Pt Level 4 (37328) Diagnoses Diabetes E11.9 Fungal infection of nail B35.1 Rupture of right Achilles tendon S86.011A Assessment & Plan Assessment & Plan (1) Diabetes: Code(s): E11.9 - Type 2 diabetes mellitus without complications Category: Medical Plan: A1c?6.3%?today.??Good?control.??Goal?is?less?than?7.0% Continue?current?medication (2) Fungal infection of nail: Code(s): B35.1 - Tinea unguium Category: Medical Plan: Patient?wants?to?use?oral?medication. Check?liver?enzymes. Will?follow-up?and?discuss?treatment Meantime, can?use?topical?terbinafine?and?I?advised?avoiding?excess?moisture, change?socks?twice?a?day (3) Rupture of right Achilles tendon: Code(s): S86.011A - Strain of right Achilles tendon, initial encounter Category: Medical Plan: Repair?was?a?year?ago Patient?would?like?to?start?exercising. Advised?he?start?gradually Orders: Orders AMB Hemoglobin A1c Today E11.9 - Type 2 diabetes mellitus without complications
[2025-01-18 08:54] VITALS: BP 126/70; PULSE 80; TEMP 36.8; O2SAT 96; BMI 39.6
--- OUTSIDE RECORDS SUMMARY | 2025-01-18 08:56 | XMS_ITS | Encounter Summary ---
Author Organization [facility] Address [address] [place] [address] Care Team Providers Care Drill Presser Name Role Phone Lupillo Olivarez MD Primary Care Provider [phone] Encounter Details Date Type Department Care Team Description 10/06/2020 Cuff Presser Report Medical Records [address] [place] [address] Jensen Posadas MD Social History Tobacco Use Types Packs/Day Years Used Date Smoking Tobacco: Never Smokeless Tobacco: Never Sex Assigned at Date Recorded Not on file documented as of this encounter Plan of Treatment Not on file documented as of this encounter Visit Diagnoses Not on filedocumented in this encounter Care Teams Drill Presser Relationship Specialty Start Date End Date Lupillo Olivarez MD [address] [place] [address] PCP - General Internal Medicine 01/25/14 documented as of this encounter
--- OUTSIDE RECORDS SUMMARY | 2025-01-18 08:56 | XMS_ITS | Encounter Summary ---
Author Organization [facility] Address [address] [place] [address] Care Team Providers Care Fourdrinier Wire Weaver Name Role Phone Lupillo Olivarez MD Primary Care Provider [phone] Encounter Details Date Type Department Care Team Description 04/08/2020 Release of Information Medical Records [address] [place] [id number] Abstract, Provider Social History Tobacco Use Types Packs/Day Years Used Date Smoking Tobacco: Never Smokeless Tobacco: Never Sex Assigned at Date Recorded Not on file documented as of this encounter Plan of Treatment Not on file documented as of this encounter Visit Diagnoses Not on filedocumented in this encounter Care Teams Fourdrinier Wire Weaver Relationship Specialty Start Date End Date Lupillo Olivarez MD [address] [place] [address] PCP - General Internal Medicine 01/25/14 documented as of this encounter
--- OUTSIDE RECORDS SUMMARY | 2025-01-18 08:56 | XMS_ITS | Encounter Summary ---
Author Organization [facility] Address [address] [place] [address] Care Team Providers Care Mathematics Professor Name Role Phone Lupillo Olivarez MD Primary Care Provider [phone] Reason for Referral * EXTERNAL (Urgent) - Authorized/Booked Specialty Diagnoses / Procedures Referred By Olimpia archer Referred To Contact Physical Therapy Procedures REFERRAL TO PHYSICAL THERAPY Lupillo Olivarez MD [address] [place], [place] Ana Mariaab.Selvin Referral ID Status Reason Start Date Expiration Date V isits Requested Visits Authorized [id number] Authorized/B ooked 09/29/2020 11/29/2020 1 1 Reason for Visit * Reason Onset Date Comments Signal Wirer Feedback 09/29/2020 CATRACHITO [place]alvo Encounter Details Date Type Department Care Team Description 09/29/2020 Telephone Adult Medicine - [facility] [address], [place] [phone] Lupillo Olivarez MD [address] [place] [address], [place] Signal Wirer Feedback (CATRACHITO Montalvo) Social History Tobacco Use Types Packs/Day Years Used Date Smoking Tobacco: Never Smokeless Tobacco: Never Sex Assigned at Date Recorded Not on file documented as of this encounter Miscellaneous Notes * Telephone Encounter - Truman Nichols - 09/29/2020 9:[address] Valladares. We have pended a new PT order since the original one will by time of appt on 09/28/2020. Please sign Thanks documented in this encounter Plan of Treatment Not on file documented as of this encounter Visit Diagnoses Not on filedocumented in this encounter Care Teams Mathematics Professor Relationship Specialty Start Date End Date Lupillo Olivarez MD [address] [place] [id number] PCP - General Internal Medicine 01/25/14 documented as of this encounter
== END 2025-01-18 09:25 | disposition home or self-care (01) ==
PROVIDERS: PCP Family Medicine; Visit Provider Family Medicine
DX: E11.9 Type 2 diabetes mellitus without complications (principal); B35.1 Tinea unguium; S86.011A Strain of right Achilles tendon, initial encounter

== ENCOUNTER → 2025-01-18 08:33 | Outpatient (BNVA) | payer OTHER, SELFPAY | PROVIDERS: PCP Family Medicine; Visit Provider Family Medicine | DX: E11.9 Type 2 diabetes mellitus without complications (principal); B35.1 Tinea unguium; S86.011D Strain of right Achilles tendon, subsequent encounter | CPT/HCPCS: 83036; 96127 ==

== ENCOUNTER 2025-01-18 09:44 | Outpatient (REF) | payer OTHER, SELFPAY ==
[2025-01-18 12:30] LABS: Alanine Aminotransferase 33 U/L (0-40); Albumin Level 4.1 g/dL (3.5-5.0); Alkaline Phosphatase 82 U/L (39-117); Anion Gap 12 (12-20); Aspartate Amino Transferase 22 U/L (5-37); Bilirubin Total 0.4 mg/dL (0.0-1.0); Blood Urea Nitrogen 14 mg/dL (9-16); Calcium 9.3 mg/dL (8.4-10.2); Carbon Dioxide 23 mmol/L (22-29); Chloride 110 mmol/L (96-108); Estimated Glomerular Filt Rate > 60; Glucose Random 114 mg/dL (60-115); Potassium 4.2 mmol/L (3.3-5.1); Sodium 141 mmol/L (135-145); Total Protein 7.3 g/dL (6.5-8.0)
[2025-01-18 15:28] LABS: Creatinine Urine 201.65 mg/dL; Microalbum/Creatinine Ratio Ur 32.7 ug/mg cr (<30)
== END 2025-01-18 09:45 | disposition home or self-care (01) ==
LOC: HO.WFDLDS 09:44
PROVIDERS: Visit Provider Family Medicine
DX: R80.9 Proteinuria, unspecified (principal); I10 Essential (primary) hypertension
CPT/HCPCS: 36415; 80053; 82043; 82570

== ENCOUNTER 2025-04-22 11:50 | Outpatient (REF) | payer OTHER, SELFPAY ==
[2025-04-22 13:55] LABS: Prostate Specific Antigen 6.61 ng/mL (<0.05-4.0)
== END 2025-04-22 11:51 | disposition home or self-care (01) ==
LOC: HO.10HDL 11:50
PROVIDERS: Visit Provider Nurse Practitioner Family
DX: R97.20 Elevated prostate specific antigen [PSA] (principal); N41.9 Inflammatory disease of prostate, unspecified; N39.43 Post-void dribbling; Z12.5 Encounter for screening for malignant neoplasm of prostate
CPT/HCPCS: 36415; 84153

== ENCOUNTER 2025-04-26 08:30 | Outpatient (AMB) | payer OTHER, SELFPAY ==
--- NOTE | 2025-04-26 08:37 | A.OFFVIS_ITS ---
Intake Visit Reasons: 6m/PSA Intake Note: Patient presents today for follow up visit on: urinary hesitancy, and psa results PSA: 6.61 Urology Medications: terazosin Blood Thinner: none PVR: 0ml's Medicaid Eligibility Specialist Required: No Accompanied by: Self / Same As Patient Allergies No Known Allergies Allergy (Verified 04/26/25 10:27) Medication List - Last Reconciled 04/26/25 by ZACK Torres epinephrine (EpiPen) 0.3 mg (0.3 mL) IM Q10M PRN metformin 750 mg (1.5 x 500 mg) PO DAILY 90 days sulfamethoxazole-trimethoprim 800-160 mg (Bactrim DS) 1 tab PO BID 14 days terazosin 5 mg PO BEDTIME 90 days HPI Comments Details: Mark is a 54-year-old male patient of Dr. Castro. He has a past medical history of diabetes and sleep apnea. He presents to the office today for follow-up of his elevated PSA. In discussion with the patient today reports to be doing and feeling well. He reports noting over the last 2-3 weeks he has been experiencing issues with urinary urgency, urinary frequency, as well as intermittent episodes of dysuria. Recent PSA results were reviewed with the patient today as noted and trended below. He reports compliance with terazosin 5 mg as prescribed and feels this initially was helpful however most recently has been experiencing urinary issues. Patient with a previous history of elevated PSA at which time he was treated with Bactrim for presumed prostatitis and repeat of PSA was significantly decreased. We discussed potential causes of elevated PSA as well as lower urinary tract symptoms patient is experiencing. ALESIA was performed left-side of the prostate was noted to be boggy otherwise no suspicious nodules palpated. PSAs are as follows: PSA: 11/16 1.7, 08/18 10.1, 08/18 7.7 % free PSA 13%, 10/18 2.4, 04/18 6.6 Previous workup has included a retroperitoneal ultrasound 08/18 noting bilateral kidneys with no calculi, lesions, and or hydronephrosis. The bladder is well distended and normal. Bilateral jets are demonstrated. Pre void bladder volume is approximately 300 mL. Postvoid bladder volume is approximately 20 mL. Prostate volume measures approximately 43 mL. We discussed potential causes of elevated PSA as well as presumed prostatitis given ALESIA during today's office visit. We discussed at length potential causes of labile/fluctuation in PSA. We discussed further treatment options and risks and benefits of these treatment options. All questions were answered. Unable to obtain urine for urinalysis as patient unable to void however PVR 0 mL. He denies hematuria, foul smelling urine, flank pain, fever, and or chills. We discussed affects of diabetes on lower urinary tract symptoms. A1c 01/19 6.3. He otherwise offers no other issues or concerns at this time. [facility] Medical History Screening for prostate cancer Screening for colon cancer Adult general medical exam Laboratory exam ordered as part of routine general medical examination Sleep apnea Upper respiratory tract infection Surgical History Umbilical hernia (11/05/24) S/P Achilles tendon repair (02/2024) Family History Mother Breast cancer Lung cancer Father Diabetes Maternal Grandmother Thyroid disorder Maternal Grandfather Lung cancer Paternal Grandfather Diabetes Social History Household Members: Family Housing: House Are you a primary animal care worker to a significant other at home: No Do you presently have visiting nurse or other home services: No Patient Tobacco Use Status: Never used Tobacco e-Cigarette/Vaping Use: Never Used service: No Current occupational status: employed 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 Cognitive needs: No Hearing needs: No Vision needs: No Review of Systems Const All systems reviewed & are unremarkable except as noted in HPI and below Physical Exam Const General: cooperative, healthy appearing, comfortable, no acute distress, well developed, alert and awake Nutritional Appearance: overweight Orientation/consciousness: patient oriented x3 Limitations: no limitations HEENT Head: Yes normal to inspection, Yes normocephalic and Yes atraumatic Ears: hearing grossly normal bilaterally Eyes General: appearance normal, both eyes and all related structures Neck Neck: Yes normal visual inspection and Yes trachea midline Chest Chest palpation & inspection: normal inspection of the chest Resp Effort & Inspection: normal respiratory effort and able to speak in complete sentences Cardio Rate: regular rate GI Inspection: Yes normal to inspection General: Yes no CVA tenderness Back/Spine/Pelvis Back: no CVA tenderness Skin General skin exam: no rashes or lesions noted Neuro General: patient oriented x3 Extrem General: Yes normal to inspection Psych Appearance: grossly normal and well kempt Mental Status: mental status grossly normal Speech and movement: Normal speech and movement present and Clear speech present Affect: normal affect Attitude: cooperative Thought process: Normal thought process present Thought content: Normal thought content present Insight: Fair insight present (Psych) Judgement: Fair judgement present (Psych) Office Procedures Post Void Residual Post Residual Void Post Void Residual (PVR): 0 09881-Cifq Void Residual by ultrasound Assessment & Plan Assessment & Plan (1) Elevated PSA: Code(s): R97.20 - Elevated prostate specific antigen [PSA] Category: Medical (2) Urinary dribbling: Code(s): N39.43 - Post-void dribbling Category: Medical (3) Prostatitis: Code(s): N41.9 - Inflammatory disease of prostate, unspecified Category: Medical (4) Urinary hesitancy: Code(s): R39.11 - Hesitancy of micturition Category: Medical Plan Unable to obtain urine for urinalysis today as patient unable to void however PVR 0 mL. Recent PSA results reviewed with the patient today; as noted above. ALESIA was performed We discussed potential causes of elevated PSA as well as further treatment options and risks and benefits of these treatment options. Continue terazosin as discussed and prescribed. We discussed potential causes of prostatitis as well as lower urinary tract symptoms patient is experiencing. We discussed the importance of management and diabetes for improvement in lower urinary tract symptoms as well as overall health and well-being. Start Bactrim as discussed and prescribed. Will repeat PSA status post completion of antibiotic therapy in 4-6 weeks. Follow-up in 2 months with PSA and PVR; or sooner with any issues, concerns, and or questions. Orders: Orders PSA,Total (Free>4and<10) 4 Weeks N41.9 - Inflammatory disease of prostate, unspecified, R97.20 - Elevated prostate specific antigen [PSA] AMB Post Void Residual by ultrasound Today N39.43 - Post-void dribbling Medications: Refilled sulfamethoxazole-trimethoprim 800-160 mg (Bactrim DS) 1 tab PO BID 14 days 28 tabs 0RF N39.0 - Urinary tract infection, site not specified Patient Instructions: The patient had an opportunity to ask questions regarding the treatment plan. All questions were answered. Physical exam, labs, and imaging were discussed and reviewed in detail. As well as risks, benefits, and discussion of treatment choices. No major barriers to understanding were identified. The patient expressed understanding and agreement with the above treatment plan. The patient was made aware they should contact our office by phone for worsening of their current condition, the appearance of new symptoms, or with any questions or concerns. Compliance is encouraged with any medications and follow up testing that is ordered. It is a privilege to be allowed the opportunity to participate in? your urological care.? Again, if you have any questions or concerns If you have any questions or concerns please do not hesitate to contact me. The office is [phone]. This note is constructed using voice recognition software. While every effort has been made to ensure accuracy quality control auditor errors may have been included. Yours sincerely, ZACK Torres Coding Level of Care Code Est Pt Level 4 (93102) Diagnoses Elevated PSA R97.20 Urinary dribbling N39.43 Prostatitis N41.9 Urinary hesitancy R39.11 CPT Codes Post Residual Void - PVR CPT Code: 53665-Xdcw Void Residual by ultrasound ([id number])
== END 2025-04-26 09:27 | disposition home or self-care (01) ==
LOC: HO.HUSH 08:31
PROVIDERS: PCP Family Medicine; Visit Provider Nurse Practitioner Family
DX: R97.20 Elevated prostate specific antigen [PSA] (principal); N39.43 Post-void dribbling; N41.9 Inflammatory disease of prostate, unspecified; R39.11 Hesitancy of micturition
CPT/HCPCS: 99214

== ENCOUNTER → 2025-04-26 08:30 | Outpatient (BNVA) | payer OTHER, SELFPAY | PROVIDERS: PCP Family Medicine; Visit Provider Nurse Practitioner Family | DX: R97.20 Elevated prostate specific antigen [PSA] (principal); N39.43 Post-void dribbling; N41.9 Inflammatory disease of prostate, unspecified; R39.11 Hesitancy of micturition | CPT/HCPCS: 51798 ==

== ENCOUNTER 2025-06-23 09:03 | Outpatient (AMB) | payer OTHER, SELFPAY ==
--- NOTE | 2025-06-23 09:05 | MHC.PC.OV ---
Vital Signs 06/23/25 09:19 Height 6 ft Weight 297 lb BMI 40.3 BP 120/70 Blood Pressure Location Rt brachial Position Sitting Respiration 16 Pulse 77 Pulse Source Pulse Oximeter Temp 97.6 F Temp Source Oral Pulse Oximetry (%) 98 Oxygen Delivery Method Room Air Intake Visit Reasons: CPE with f/u labs and health maint Intake Note: patient is scheduled for cpe patient need med refill for metformin Escalator Service Mechanic Required: No Allergies No Known Allergies Allergy (Verified 06/23/25 09:10) Tobacco use date assessed: 06/23/25 Dental Screening Dental Screen Date: 06/23/25 Did you have a dental visit in the last 12 months?: No Did you have a dental problem in the last 6 months where you did not have access to dental care?: No Was dental information given to patient?: Patient has dentist HPI CPE with f/u labs and health maint HPI Details 54 y/o male presents for a CPE with f/u labs and health maintenance. No recent labs to review. A1c improved from 6.3% to 6.0%. He is on metformin 750mg daily. [facility] Medical History (Updated 06/23/25 @ 09:40 by Broderick Wolff) Screening for prostate cancer Adult general medical exam Screening for colon cancer Laboratory exam ordered as part of routine general medical examination Sleep apnea Upper respiratory tract infection Surgical History Umbilical hernia (11/05/24) S/P Achilles tendon repair (02/2024) Family History Mother Breast cancer Lung cancer Father Diabetes Maternal Grandmother Thyroid disorder Maternal Grandfather Lung cancer Paternal Grandfather Diabetes Social History Household Members: Family Housing: House Are you a primary home day care provider to a significant other at home: No Do you presently have visiting nurse or other home services: No Patient Tobacco Use Status: Never used Tobacco e-Cigarette/Vaping Use: Never Used service: No Current occupational status: employed 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 1. Little interest or pleasure in doing things: not at all 2. Feeling down, depressed, or hopeless: not at all 3. Trouble falling or staying asleep, or sleeping too much: not at all 4. Feeling tired or having little energy: not at all 5. Poor appetite or overeating: not at all 6. Feeling bad about yourself - or that you are a failure or have let yourself or your family down: not at all 7. Trouble concentrating on things, such as reading the newspaper or watching television: not at all 8. Moving or speaking so slowly that other people could have noticed. Or the opposite - being so fidgety or restless that you have been moving around a lot more than usual: not at all 9. Thoughts that you would be better off or of hurting yourself in some way: not at all Total score: 0 Depression Screening Interpretation: Negative Depression Screening Done: Yes 69042 - PHQ-9 Billing: Yes Source: Developed by Drs. Gus Palacios, Em Clancy, Fede Hood and colleagues, with an educational karina from [employer]. Thrive Questionnaire Date Thrive assessed: 06/23/25 I am a: Patient What is your living situation today?: I have a steady place to live Within the past 12 months, did the food you bought not last and you didn't have the money to get more?: Never true Within the past 12 months, did you worry whether your food would run out before you got money to buy more?: Never true Do you have trouble paying for medicines?: No Do you have trouble getting transportation to medical appointments?: No Do you have trouble paying your heating and electricity bill?: No Do you have trouble taking care of your child, family member or friend?: No Do you have trouble with day-to-day activities such as bathing, preparing meals, shopping, managing finances, etc.?: No Are you currently unemployed and looking for a job?: No Are you interested in more education?: Yes Please select the resources that you would like help with: None Currently or been in a relationship where the following occur: No concerns reported THRIVE Score: 0 AUDIT C Alcohol Use Questionnaire (AUDIT-C) 1. How often do you have a drink containing alcohol?: Monthly or less 2. How many drinks containing alcohol do you have on a typical day when you are drinking?: 3 or 4 3. How often do you have six or more drinks on one occasion?: Never Total Score: 2 Score Reviewed/Action Taken: Yes SALBADOR-7 AMB Questionnaire SALBADOR-7 Date SALBADOR - 7 assessed: 06/23/25 Feeling nervous, anxious, or on edge: 0 = Not at all Not being able to stop or control worryin = Not at all Worrying too much about different things: 0 = Not at all Trouble relaxin = Not at all Being so restless that it is hard to sit still: 0 = Not at all Becoming easily annoyed or irritable: 0 = Not at all Feeling afraid as if something awful might happen: 0 = Not at all Total SALBADOR-7 score (0-4 normal; 5-9 mild; 10-14 moderate; 15-21 severe): 0 Source: Developed by Drs. Gus Palacios, Em Clancy, Fede Hood and colleagues, with an educational karina from [employer]. SALBADOR-7 Assessment Billing SALBADOR-7 Assessment Tool: SALBADOR-7 Assessment 29748 Review of Systems Const Denies chills, Denies fatigue, Denies fever(s), Denies headache(s) and Denies weakness Eyes Denies change in vision ENT Denies dizziness, Denies headache(s), Denies hearing loss, Denies nasal congestion, Denies sinus pain, Denies sinus pressure and Denies sore throat Card Denies chest pain, Denies lightheadedness, Denies dyspnea and Denies other (palpitations) Resp Denies cough, Denies dyspnea and Denies wheezing GI Denies abdominal pain, Denies melena, Denies hematochezia, Denies change in bowel habits, Denies dyspepsia and Denies nausea Denies hematuria and Denies dysuria Musc Denies abnormal gait, Denies myalgias, Denies arthralgias, Denies numbness and Denies tingling Skin/Breast Denies rash, Denies unusual bruising and Denies wounds Neuro Denies abnormal gait, Denies dizziness, Denies headache(s), Denies memory loss, Denies numbness, Denies Sensory deficit (Neuro), Denies tingling and Denies weakness Psych Denies anxiety, Denies depression and Denies memory loss Endo Denies cold intolerance, Denies fatigue, Denies heat intolerance, Denies polydipsia and Denies polyuria Paresh/Lymph Denies easy bleeding and Denies easy bruising Aller/Immun Denies wheezing Physical exam (Primary Care) Vital Signs: Last Vital Signs Temp 97.6 F 06/23/25 09:19 Pulse 77 06/23/25 09:19 Resp 16 06/23/25 09:19 BP 120/70 06/23/25 09:19 Pulse Ox 98 06/23/25 09:19 Oxygen Delivery Method Room Air 06/23/25 09:19 BMI result Body Mass Index 40.3 Tobacco/Smoking Status: Tobacco use Status Tobacco use date assessed 06/23/25 06/23/25 09:22 Patient Tobacco Use Status Never used Tobacco 06/23/25 09:06 e-Cigarette/Vaping Use Never Used 06/23/25 09:06 PHQ-9: PHQ-9 Score PHQ-9: Total score 0 06/23/25 09:33 Depression Screening Interpretation: Negative Thrive Assessment: Date of Thrive Assessment Date Thrive assessed 06/23/25 06/23/25 09:22 Currently or been in a relationship where the following occur: No concerns reported Const General: no acute distress, well developed, alert and awake Nutritional Appearance: well nourished and obese morbidly obese Orientation/consciousness: patient oriented x3 HENMT Head: Yes normocephalic and Yes atraumatic Ears: hearing grossly normal bilaterally and TM's normal bilaterally General nose exam: Normal external nose present and Normal nares present Mouth: Normal oral and palatal mucosa present and moist mucous membranes Teeth and gingiva: dentition normal Throat: Yes posterior oropharynx normal Eyes General: appearance normal, both eyes and all related structures Pupils: Equal, round and reactive pupils present and Pupil accommodation reflex normal EOM: EOMs intact bilaterally Neck Neck: Yes normal visual inspection, Yes no lymphadenopathy and Yes trachea midline Thyroid: Thyroid normal Carotids: no bruits Lymphatic: no lymphadenopathy noted Chest Chest palpation & inspection: normal inspection of the chest Resp Effort & Inspection: normal respiratory effort Auscultation: clear to auscultation bilaterally Cardio Rate: regular rate Rhythm: regular rhythm Heart sounds: S1 normal heart sound present, S2 normal heart sound present, no gallops, no murmurs and no rubs Bruits: no abdominal aortic bruits and no carotid bruits GI Palpation (GI): No Abdominal aortic bruit present, Soft to palpation, nontender, No hepatosplenomegaly present and No Rebound tenderness present Auscultation: normal bowel sounds General: Yes no CVA tenderness Back/Spine/Pelvis Back: no CVA tenderness Cervical Spine: cervical ROM normal and No Cervical spine tenderness Thoracic/Lumbar Spine: thoraco-lumbar ROM normal, No pain with thoraco-lumbar ROM, No thoracic spinal tenderness and No lumbar spinal tenderness Skin Lesions: no lesions Rashes: no rashes Trauma: no lacerations or abrasions Wounds: no wounds Nails: normal Neuro General: patient oriented x3 Cranial nerves: Yes Equal, round and reactive pupils present Cognition (Neuro): normal cognition Gait exam (Neuro): Normal gait present Motor exam (neuro): 5/5 motor strength present throughout Sensory Exam: No Sensory deficit (Neuro) Deep tendon reflexes (DTR's): Right patellar reflex intensity grade: 2+ and Left patellar reflex intensity grade: 2+ Extrem General: Yes normal to inspection and No edema Psych Appearance: grossly normal Affect: normal affect Attitude: cooperative Thought process: Normal thought process present Coding Level of Care Code Est Pt Level 3 (66425) Est Pt Prev Care 40-64y(94861) Diagnoses Adult general medical exam Z00.00 Diabetes E11.9 Morbid obesity E66.01 Hernia K46.9 Screening for colon cancer Z12.11 Screening for prostate cancer Z12.5 Additional Codes SALBADOR-7 Assessment Billing - SALBADOR-7 Assessment Tool: SALBADOR-7 Assessment 72605 ([id number]) PHQ-9 - 65104 - PHQ-9 Billing: Yes ([id number]) Assessment & Plan Assessment & Plan (1) Adult general medical exam: Code(s): Z00.00 - Encounter for general adult medical examination without abnormal findings Category: Medical Plan: 54-year-old male presents for complete physical exam Encouraged healthy diet with active lifestyle and plenty of exercise (2) Diabetes: Code(s): E11.9 - Type 2 diabetes mellitus without complications Category: Medical Plan: A1c 6.0%. Controlled. Goal is less than 7.0% Patient will continue metformin for now. However, patient also has morbid obesity and sleep apnea and would like to try Mounjaro Starting Mounjaro 2.5 mg weekly. Risks/benefits discussed (3) Morbid obesity: Code(s): E66.01 - Morbid (severe) obesity due to excess calories Category: Medical Plan: As above, will trial Mounjaro Follow-up in 1 month (4) Hernia: Code(s): K46.9 - Unspecified abdominal hernia without obstruction or gangrene Category: Medical Plan: Higher umbilical hernia surgery Still gets some discomfort there and impulse to Valsalva He can follow-up with General surgery if still having significant pain. He declines for now (5) Screening for colon cancer: Code(s): Z12.11 - Encounter for screening for malignant neoplasm of colon Category: Medical Plan: Patient declines colon cancer screening for now. Will readdress at a subsequent visit (6) Screening for prostate cancer: Code(s): Z12.5 - Encounter for screening for malignant neoplasm of prostate Category: Medical Plan: Followed by neurology and has appointment in July Orders: Orders Microalbumin, Random (w Creat) 06/22/25 I10 - Essential (primary) hypertension TSH reflex Free T4 06/22/25 Z00.00 - Encounter for general adult medical examination without abnormal findings Comprehensive [place]. Panel Fast 06/22/25 Z00.00 - Encounter for general adult medical examination without abnormal findings Complete Blood Count Auto Diff 06/22/25 Z00.00 - Encounter for general adult medical examination without abnormal findings Lipid Panel 06/22/25 Z00.00 - Encounter for general adult medical examination without abnormal findings Prostate Specific Antigen Scr 06/22/25 Z12.5 - Encounter for screening for malignant neoplasm of prostate UA CC w/rflx Micro + Cult 06/22/25 Z00.00 - Encounter for general adult medical examination without abnormal findings Hemoglobin A1c 06/22/25 R73.01 - Impaired fasting glucose Medications: New tirzepatide (Mounjaro) for 4 weeks 2.5 mg (0.5 mL) subcut QWEEK 2 mL 4RF 28 days E11.9 - Type 2 diabetes mellitus without complications, E66.01 - Morbid (severe) obesity due to excess calories, G47.30 - Sleep apnea, unspecified
[2025-06-23 09:19] VITALS: BP 120/70; PULSE 77; RESP 16; TEMP 36.4; O2SAT 98; BMI 40.3
== END 2025-06-23 09:47 | disposition home or self-care (01) ==
LOC: HO.HMCFM 09:04
PROVIDERS: PCP Family Medicine; Visit Provider Family Medicine
DX: Z00.00 Encounter for general adult medical examination without abnormal findings (principal); K46.9 Unspecified abdominal hernia without obstruction or gangrene; E11.9 Type 2 diabetes mellitus without complications; E66.01 Morbid (severe) obesity due to excess calories; Z68.41 Body mass index [BMI] 40.0-44.9, adult; Z12.11 Encounter for screening for malignant neoplasm of colon; Z12.5 Encounter for screening for malignant neoplasm of prostate

== ENCOUNTER → 2025-06-23 09:03 | Outpatient (BNVA) | payer OTHER, SELFPAY | PROVIDERS: PCP Family Medicine; Visit Provider Family Medicine | DX: Z00.00 Encounter for general adult medical examination without abnormal findings (principal); I10 Essential (primary) hypertension; E66.9 Obesity, unspecified; Z68.41 Body mass index [BMI] 40.0-44.9, adult; E11.9 Type 2 diabetes mellitus without complications; E66.01 Morbid (severe) obesity due to excess calories; K46.9 Unspecified abdominal hernia without obstruction or gangrene; G47.30 Sleep apnea, unspecified | CPT/HCPCS: 96127 ==

== ENCOUNTER 2025-07-23 08:10 | Outpatient (REF) | payer OTHER, SELFPAY ==
--- OUTSIDE RECORDS SUMMARY | 2025-07-23 08:50 | XMS_ITS | Encounter Summary ---
Author Organization [facility] Address [address] [place] [address] Care Team Providers Care Market Master Name Role Phone Lupillo Olivarez MD Primary Care Provider [phone] Encounter Details Date Type Department Care Team Description 04/08/2020 Release of Information Medical Records [address] [place] [id number] Abstract, Provider Social History Tobacco Use Types Packs/Day Years Used Date Smoking Tobacco: Never Smokeless Tobacco: Never Sex Assigned at Date Recorded Not on file documented as of this encounter Plan of Treatment Not on file documented as of this encounter Visit Diagnoses Not on filedocumented in this encounter Care Teams Market Master Relationship Specialty Start Date End Date Lupillo Olivarez MD [address] [place] [address] PCP - General Internal Medicine 01/25/14 documented as of this encounter
--- OUTSIDE RECORDS SUMMARY | 2025-07-23 08:50 | XMS_ITS | Encounter Summary ---
Author Organization [facility] Address [address] [place] [address] Care Team Providers Care Hat Blocking Machine Operator Name Role Phone Lupillo Olivarez MD Primary Care Provider [phone] Reason for Visit * Reason Onset Date Comments Special Procedure 04/27/2021 Encounter Details Date Type Department Care Team Description 04/27/2021 Telephone Gastroenterology - [place] [address] [place] [id number] Rufina Hodge MD [address] [place] [id number] Special Procedure Social History Tobacco Use Types Packs/Day Years Used Date Smoking Tobacco: Never Smokeless Tobacco: Never Sex Assigned at Date Recorded Not on file documented as of this encounter Miscellaneous Notes * Telephone Encounter - Opal Saab - 04/27/2021 10:29 AM EDT Left message to schedule screening colon with any provider documented in this encounter Plan of Treatment Not on file documented as of this encounter Visit Diagnoses Not on filedocumented in this encounter Care Teams Hat Blocking Machine Operator Relationship Specialty Start Date End Date Lupillo Olivarez MD [address] [place] [address] PCP - General Internal Medicine 01/25/14 documented as of this encounter
--- OUTSIDE RECORDS SUMMARY | 2025-07-23 08:50 | XMS_ITS | Encounter Summary ---
Author Organization [facility] Address [address] [place] [address] Care Team Providers Care Railroad Conductor Name Role Phone Lupillo Olivarez MD Primary Care Provider [phone] Encounter Details Date Type Department Care Team Description 10/06/2020 Insole Filler Report Medical Records [address] [place] [address] Jensen Posadas MD Social History Tobacco Use Types Packs/Day Years Used Date Smoking Tobacco: Never Smokeless Tobacco: Never Sex Assigned at Date Recorded Not on file documented as of this encounter Plan of Treatment Not on file documented as of this encounter Visit Diagnoses Not on filedocumented in this encounter Care Teams Railroad Conductor Relationship Specialty Start Date End Date Lupillo Olivarez MD [address] [place] [address] PCP - General Internal Medicine 01/25/14 documented as of this encounter
[2025-07-23 13:30] LABS: PSA,Total (Free>4and<10) 3.56 ng/mL (0.00-4.00)
== END 2025-07-23 08:11 | disposition home or self-care (01) ==
LOC: HO.10HDL 08:10
PROVIDERS: Visit Provider Nurse Practitioner Family
DX: R97.20 Elevated prostate specific antigen [PSA] (principal); N41.9 Inflammatory disease of prostate, unspecified; Z12.5 Encounter for screening for malignant neoplasm of prostate
CPT/HCPCS: 36415; 84153

== ENCOUNTER 2025-08-04 07:36 | Outpatient (AMB) | payer OTHER, SELFPAY ==
--- NOTE | 2025-08-04 07:35 | A.OFFVIS_ITS ---
Intake Visit Reasons: 3m/PSA Intake Note: Patient presents today for 3 mo follow up visit Labs done 07/23/25 PSA: 3.56 Urology Medications: terazosin Blood Thinner: none PVR: 69mls Forestry Aide Required: No Accompanied by: Self / Same As Patient Allergies No Known Allergies Allergy (Verified 08/04/25 09:59) Medication List - Last Reconciled 08/04/25 by ZACK Torres epinephrine (EpiPen) 0.3 mg (0.3 mL) IM Q10M PRN metformin 750 mg (1.5 x 500 mg) PO DAILY 90 days terazosin 5 mg PO BEDTIME 90 days tirzepatide (Mounjaro) 2.5 mg (0.5 mL) subcut QWEEK 28 days HPI Comments Details: Mark is a 54-year-old male patient of Dr. Castro. He has a past medical history of diabetes and sleep apnea. He presents to the office today for follow-up of his elevated PSA. In discussion with the patient today he reports to be doing and feeling well. He reports since his last office visit here he has since completed antibiotic therapy as prescribed. We did discussed decrease in PSA and potential for prostatitis given PSA is now decreased and patient's lower urinary tract symptoms he had been experiencing have also subsided. He also discusses his weight loss journey with GLP 1 and feels since he has lost intentionally 30 lb he has been feeling overall better. He continues with terazosin 5 mg as prescribed. He currently denies any bothersome urinary issues. He reports be happy with his current voiding parameters. PSAs are as follows: PSA: 11/16 1.7, 08/18 10.1, 08/18 7.7 % free PSA 13%, 10/18 2.4, 04/18 6.6, 07/19 3.6 Previous workup has included a retroperitoneal ultrasound 08/18 noting bilateral kidneys with no calculi, lesions, and or hydronephrosis. The bladder is well distended and normal. Bilateral jets are demonstrated. Pre void bladder volume is approximately 300 mL. Postvoid bladder volume is approximately 20 mL. Prostate volume measures approximately 43 mL. We discussed potential causes of elevated PSA as well as presumed prostatitis given ALESIA during last office visit. We discussed at length potential causes of labile/fluctuation in PSA. We discussed further treatment options and risks and benefits of these treatment options. All questions were answered. Urinalysis results reviewed with the patient today. PVR He denies hematuria, foul smelling urine, flank pain, fever, and or chills. We discussed affects of diabetes on lower urinary tract symptoms. A1c 01/19 6.3. He otherwise offers no other issues or concerns at this time. [facility], [facility] Medical History Screening for prostate cancer Adult general medical exam Screening for colon cancer Laboratory exam ordered as part of routine general medical examination Sleep apnea Upper respiratory tract infection Surgical History Umbilical hernia (11/05/24) S/P Achilles tendon repair (02/2024) Family History Mother Breast cancer Lung cancer Father Diabetes Maternal Grandmother Thyroid disorder Maternal Grandfather Lung cancer Paternal Grandfather Diabetes Social History Household Members: Family Housing: House Are you a primary manager medicare to a significant other at home: No Do you presently have visiting nurse or other home services: No Patient Tobacco Use Status: Never used Tobacco e-Cigarette/Vaping Use: Never Used service: No Current occupational status: employed 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 Cognitive needs: No Hearing needs: No Vision needs: No Review of Systems Const All systems reviewed & are unremarkable except as noted in HPI and below Physical Exam Const General: cooperative, healthy appearing, comfortable, no acute distress, well developed, alert and awake Nutritional Appearance: overweight Orientation/consciousness: patient oriented x3 Limitations: no limitations HEENT Head: Yes normal to inspection, Yes normocephalic and Yes atraumatic Ears: hearing grossly normal bilaterally Eyes General: appearance normal, both eyes and all related structures Neck Neck: Yes normal visual inspection and Yes trachea midline Chest Chest palpation & inspection: normal inspection of the chest Resp Effort & Inspection: normal respiratory effort and able to speak in complete sentences Cardio Rate: regular rate GI Inspection: Yes normal to inspection General: Yes no CVA tenderness Back/Spine/Pelvis Back: no CVA tenderness Skin General skin exam: no rashes or lesions noted Neuro General: patient oriented x3 Extrem General: Yes normal to inspection Psych Appearance: grossly normal and well kempt Mental Status: mental status grossly normal Speech and movement: Normal speech and movement present and Clear speech present Affect: normal affect Attitude: cooperative Thought process: Normal thought process present Thought content: Normal thought content present Insight: Fair insight present (Psych) Judgement: Fair judgement present (Psych) Office Procedures Post Void Residual Post Residual Void Post Void Residual (PVR): 69 [id number] Void Residual by ultrasound Results AMB Urinalysis, Automated UA Leukoctes 0 Juan M/uL Last Edit by Yoon Peña CCM on 08/04/25 07:46 UA Nitrite Negative Last Edit by Yoon Peña [facility] on 08/04/25 07:46 UA Urobilinogen 0.2 mg/dL Last Edit by Yoon Peña CCM on 08/04/25 07:4 6 UA Protein 15 mg/dL Last Edit by Yoon Peña [facility] on 08/04/25 07:46 UA pH 6.0 Last Edit by Yoon Peña [facility] on 08/04/25 07:46 UA Blood 0 Jos/uL Last Edit by Yoon Peña CCM on 08/04/25 07:46 UA Specific Roscoe 1.020 Last Edit by Yoon Peña [facility] on 08/04/25 07: 46 UA Ketone Negative Last Edit by Yoon Peña CCM on 08/04/25 07:46 UA Bilirubin 0 mg/dL Last Edit by Yoon Peña [facility] on 08/04/25 07:46 UA Glucose 0 mg/dL Last Edit by Yoon Peña [facility] on 08/04/25 07:46 Results Reviewed Results Reviewed: Laboratory Last Values Urine pH (Auto) 6.0 08/04/25 07:45 Specific Roscoe (Auto) 1.020 08/04/25 07:45 Urine Protein (Auto) 15 mg/dL 08/04/25 07:45 Glucose (UA)(Auto) 0 mg/dL 08/04/25 07:45 Urine Ketones (Auto) Negative 08/04/25 07:45 Urine Blood (Auto) 0 Jos/uL 08/04/25 07:45 Urine Nitrite (Auto) Negative 08/04/25 07:45 Urine Bilirubin (Auto) 0 mg/dL 08/04/25 07:45 Urine Urobilinogen (Auto) 0.2 mg/dL 08/04/25 07:45 Leukocyte Esterase (Auto) 0 Juan M/uL 08/04/25 07:45 Assessment & Plan Assessment & Plan (1) Urinary hesitancy: Code(s): R39.11 - Hesitancy of micturition Category: Medical (2) Weak urinary stream: Code(s): R39.12 - Poor urinary stream Category: Medical (3) Urinary dribbling: Code(s): N39.43 - Post-void dribbling Category: Medical (4) Elevated PSA: Code(s): R97.20 - Elevated prostate specific antigen [PSA] Category: Medical (5) Prostatitis: Code(s): N41.9 - Inflammatory disease of prostate, unspecified Category: Medical Plan In office urinalysis results reviewed with the patient today; as noted above. PVR 69 mL Recent PSA results reviewed with the patient today; as noted above. Continue terazosin. We did discussed potential causes of fluctuation in PSA. He currently denies any bothersome urinary issues or concerns. He reports be happy with current voiding parameters. Will continue with surveillance monitoring. All questions were answered. Follow-up in 4 months with PSA and PVR; or sooner with any issues, concerns, and or questions. Orders: Orders AMB Urinalysis Automated Today Z13.9 - Encounter for screening, unspecified Patient Instructions: The patient had an opportunity to ask questions regarding the treatment plan. All questions were answered. Physical exam, labs, and imaging were discussed and reviewed in detail. As well as risks, benefits, and discussion of treatment choices. No major barriers to understanding were identified. The patient expressed understanding and agreement with the above treatment plan. The patient was made aware they should contact our office by phone for worsening of their current condition, the appearance of new symptoms, or with any questions or concerns. Compliance is encouraged with any medications and follow up testing that is ordered. It is a privilege to be allowed the opportunity to participate in? your urological care.? Again, if you have any questions or concerns If you have any questions or concerns please do not hesitate to contact me. The office is [phone]. This note is constructed using voice recognition software. While every effort has been made to ensure accuracy taste tester errors may have been included. Yours sincerely, ZACK Torres Coding Level of Care Code Est Pt Level 3 (77839) Complex EM visit Add On G2211 Diagnoses Urinary hesitancy R39.11 Weak urinary stream R39.12 Urinary dribbling N39.43 Elevated PSA R97.20 Prostatitis N41.9 CPT Codes Post Residual Void - PVR CPT Code: 99591-Ltnu Void Residual by ultrasound ([id number])
== END 2025-08-04 08:01 | disposition home or self-care (01) ==
LOC: HO.HUSH 07:37
PROVIDERS: PCP Family Medicine; Visit Provider Nurse Practitioner Family
DX: R39.11 Hesitancy of micturition (principal); R39.12 Poor urinary stream; N39.43 Post-void dribbling; R97.20 Elevated prostate specific antigen [PSA]; N41.9 Inflammatory disease of prostate, unspecified; Z13.9 Encounter for screening, unspecified
CPT/HCPCS: 99213

== ENCOUNTER → 2025-08-04 07:36 | Outpatient (BNVA) | payer OTHER, SELFPAY | PROVIDERS: PCP Family Medicine; Visit Provider Nurse Practitioner Family | DX: R39.11 Hesitancy of micturition (principal); R39.12 Poor urinary stream; R97.20 Elevated prostate specific antigen [PSA]; N39.43 Post-void dribbling; N41.9 Inflammatory disease of prostate, unspecified | CPT/HCPCS: 51798; 81003 ==

== ENCOUNTER 2025-08-26 09:31 | Outpatient (REF) | payer OTHER, SELFPAY ==
[2025-08-26 11:42] LABS: Appearance Urine Clear; Glucose Urine UA Negative (Negative); PH 5.5 (5.0-9.0); Specific Gravity - Urine 1.025 (1.005-1.025); UMIC TRIGGER UACC YES
[2025-08-26 12:12] LABS: MANUAL DIFF FLAG NO
[2025-08-26 12:19] LABS: Hematocrit 44.9 % (42.0-52.0); Hemoglobin 15.2 g/dl (14.0-18.0); Imm Gran Abs Auto 0.04 X10*3/uL (0.00-0.03); Imm Gran Pct Auto 0.5 % (0.0-0.4); Lymphocytes Absolute Auto 1.8 X10*3/uL (1.2-4.9); Mean Corpuscular HGB Conc 33.9 g/dl (31.0-36.0); Mean Corpuscular Hemoglobin 27.7 pg (27.0-33.0); Mean Corpuscular Volume 81.9 fL (80.0-98.0); NRBC Abs Auto 0.000 X10*3/uL (0.0-0.012); NRBC Pct Auto 0.0 /100WBC (0.0-0.2); Platelet Count 240 X10*3/uL (160-400); Red Blood Count 5.48 X10*6/uL (4.60-5.80); White Blood Count 7.5 X10*3/uL (4.8-10.8)
[2025-08-26 12:23] LABS: Microalbum/Creatinine Ratio Ur 33.8 ug/mg cr (<30)
[2025-08-26 12:42] LABS: Alanine Aminotransferase 26 U/L (0-40); Albumin Level 4.5 g/dL (3.5-5.0); Alkaline Phosphatase 72 U/L (39-117); Anion Gap 10 (12-20); Aspartate Amino Transferase 22 U/L (5-37); Blood Urea Nitrogen 13 mg/dL (9-16); Calcium 9.3 mg/dL (8.4-10.2); Carbon Dioxide 26 mmol/L (22-29); Chloride 107 mmol/L (96-108); Cholesterol 130 mg/dL (<200); Estimated Glomerular Filt Rate > 60; HDL Cholesterol 30 mg/dL (>40); Potassium 4.2 mmol/L (3.3-5.1); Sodium 139 mmol/L (135-145); Total Protein 7.0 g/dL (6.5-8.0); Triglycerides 127 mg/dL (<150)
== END 2025-08-26 09:32 | disposition home or self-care (01) ==
LOC: HO.WFDLDS 09:31
PROVIDERS: PCP Family Medicine; Visit Provider Family Medicine
DX: Z00.00 Encounter for general adult medical examination without abnormal findings (principal); Z12.5 Encounter for screening for malignant neoplasm of prostate; R73.01 Impaired fasting glucose; E66.9 Obesity, unspecified; E11.9 Type 2 diabetes mellitus without complications; I10 Essential (primary) hypertension; R97.20 Elevated prostate specific antigen [PSA]; Z79.84 Long term (current) use of oral hypoglycemic drugs; Z79.899 Other long term (current) drug therapy; Z68.37 Body mass index [BMI] 37.0-37.9, adult
CPT/HCPCS: 36415; 80053; 80061; 81001; 82043; 82570; 83036; 84153; 84443; 85025

== ENCOUNTER 2025-08-26 09:31 | Outpatient (AMB) | payer OTHER, SELFPAY ==
--- NOTE | 2025-08-26 09:34 | MHC.PC.OV ---
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 Required: No Allergies No Known Allergies Allergy (Verified 08/26/25 09:37) Medication List - Last Reconciled 08/26/25 by Edouard Castro MD epinephrine (EpiPen) 0.3 mg (0.3 mL) IM Q10M PRN metformin 750 mg (1.5 x 500 mg) PO DAILY 90 days terazosin 5 mg PO BEDTIME 90 days tirzepatide (Mounjaro) 2.5 mg (0.5 mL) subcut QWEEK 28 days Tobacco use date assessed: 08/26/25 Dental Screening Dental Screen Date: 08/26/25 Did you have a dental visit in the last 12 months?: No Did you have a dental problem in the last 6 months where you did not have access to dental care?: No Was dental information given to patient?: No HPI 1 month f/u obesity, labs HPI Details 54 y/o male presents to f/u obesity. Has been tolerating Mounjaro well. He is on mounjaro 2.5mg. Has lost weight - 297 lbs 06/23/25 to 277 lbs today 08/26/25. A1c today 08/26/25. is 5.9%. HPI Comments History of Present Illness Details Documentation assistance for Edouard Castro MD, was provided by Broderick Wolff,? Metallurgical Analyst on 08/26/2025 at 9:49 AM RAVI. I, Dr. Castro, have read, observed, and verified documentation. ? PFSH Medical History Screening for prostate cancer Adult general medical exam Screening for colon cancer Laboratory exam ordered as part of routine general medical examination Sleep apnea Upper respiratory tract infection Surgical History (Reviewed 06/23/25 @ 09:17 by Sukumar Norwood [facility]) Umbilical hernia (11/05/24) S/P Achilles tendon repair (02/2024) Family History Mother Breast cancer Lung cancer Father Diabetes Maternal Grandmother Thyroid disorder Maternal Grandfather Lung cancer Paternal Grandfather Diabetes Social History Household Members: Family Housing: House Are you a primary day care supervisor to a significant other at home: No Do you presently have visiting nurse or other home services: No Patient Tobacco Use Status: Never used Tobacco e-Cigarette/Vaping Use: Never Used service: No Current occupational status: employed 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 Cognitive needs: No Hearing needs: No Vision needs: No Questionnaire Thrive Questionnaire Date Thrive assessed: 01/15/25 I am a: Patient What is your living situation today?: I have a steady place to live Within the past 12 months, did the food you bought not last and you didn't have the money to get more?: Never true Within the past 12 months, did you worry whether your food would run out before you got money to buy more?: Never true Do you have trouble paying for medicines?: No Do you have trouble getting transportation to medical appointments?: No Do you have trouble paying your heating and electricity bill?: No Do you have trouble taking care of your child, family member or friend?: No Do you have trouble with day-to-day activities such as bathing, preparing meals, shopping, managing finances, etc.?: No Are you currently unemployed and looking for a job?: No Are you interested in more education?: Yes Please select the resources that you would like help with: None Currently or been in a relationship where the following occur: No concerns reported THRIVE Score: 0 SALBADOR-7 AMB Questionnaire SALBADOR-7 Date SALBADOR - 7 assessed: 06/23/25 Source: Developed by Drs. Gus Palacios, Em Clancy, Fede Hood and colleagues, with an educational karina from [employer]. Review of Systems Const Denies chills, Denies fatigue, Denies fever(s), Denies headache(s) and Denies weakness ENT Denies dizziness and Denies headache(s) Card Denies dyspnea Resp Denies cough, Denies dyspnea, Denies wheezing and Denies other (shortness of breath) Musc Denies numbness and Denies tingling Neuro Denies dizziness, Denies headache(s), Denies numbness, Denies tingling and Denies weakness Psych Denies anxiety and Denies depression Endo Denies fatigue Aller/Immun Denies wheezing Physical exam (Primary Care) Vital Signs: Last Vital Signs Temp 97.6 F 08/26/25 09:37 Pulse 84 08/26/25 09:37 Resp 20 08/26/25 09:37 BP 129/71 08/26/25 09:37 Pulse Ox 97 08/26/25 09:37 Oxygen Delivery Method Room Air 08/26/25 09:37 BMI result Body Mass Index 37.6 Tobacco/Smoking Status: Tobacco use Status Tobacco use date assessed 08/26/25 08/26/25 09:40 Patient Tobacco Use Status Never used Tobacco 08/26/25 09:37 e-Cigarette/Vaping Use Never Used 08/26/25 09:37 Thrive Assessment: Date of Thrive Assessment Date Thrive assessed 01/15/25 08/26/25 09:37 Currently or been in a relationship where the following occur: No concerns reported Const General: well developed; No acute distress Nutritional Appearance: well nourished Orientation/consciousness: patient oriented x3 HENMT Head: Yes normocephalic and Yes atraumatic Eyes General: appearance normal, both eyes and all related structures Pupils: Equal, round and reactive pupils present EOM: EOMs intact bilaterally Resp Effort & Inspection: normal respiratory effort Auscultation: clear to auscultation bilaterally Cardio Rate: regular rate Rhythm: regular rhythm Heart sounds: S1 normal heart sound present, S2 normal heart sound present, no gallops, no murmurs and no rubs Neuro General: patient oriented x3 and gait normal Cranial nerves: Yes Equal, round and reactive pupils present Psych Affect: normal affect Results AMB Hemoglobin A1c AMB Hemoglobin A1c 5.9 % Last Edit by Pamela Edward MA on 08/26/25 09:58 Coding Level of Care Code Est Pt Level 3 (21700) Diagnoses Obesity E66.9 Diabetes E11.9 Assessment & Plan Assessment & Plan (1) Obesity: Code(s): E66.9 - Obesity, unspecified Category: Medical Plan: Patient is tolerating tirzepatide well. No adverse effects. Has lost about 20 lb Will increase his dose from 2.5 mg weekly to 5 mg weekly. Encouraged healthy diet and exercise (2) Diabetes: Code(s): E11.9 - Type 2 diabetes mellitus without complications Category: Medical Plan: A1c 5.9% good control. Goal is less than 7% Continue current medications Continue working at diet low in sugars and starches Encouraged Exercise Encouraged patient to contact material flow analyst for annual exam Orders: Orders AMB Hemoglobin A1c Today Z13.9 - Encounter for screening, unspecified Medications: Changed From tirzepatide (Mounjaro) for 4 weeks 2.5 mg (0.5 mL) subcut QWEEK 28 days 2 mL 4RF E11.9 - Type 2 diabetes mellitus without complications, E66.01 - Morbid (severe) obesity due to excess calories, G47.30 - Sleep apnea, unspecified To tirzepatide for 4 weeks 5 mg (0.5 mL) subcut QWEEK 2 mL 4RF 28 days E11.9 - Type 2 diabetes mellitus without complications, E66.01 - Morbid (severe) obesity due to excess calories, G47.30 - Sleep apnea, unspecified
[2025-08-26 09:37] VITALS: BP 129/71; PULSE 84; RESP 20; TEMP 36.4; O2SAT 97; BMI 37.6
== END 2025-08-26 10:00 | disposition home or self-care (01) ==
LOC: HO.HMCFM 09:32
PROVIDERS: PCP Family Medicine; Visit Provider Family Medicine
DX: E11.9 Type 2 diabetes mellitus without complications (principal); E66.9 Obesity, unspecified; Z68.37 Body mass index [BMI] 37.0-37.9, adult

== ENCOUNTER 2025-11-19 15:44 | Outpatient (REF) | payer OTHER, SELFPAY ==
[2025-11-19 16:18] LABS: Appearance Urine Clear; Glucose Urine UA Negative (Negative); PH 5.5 (5.0-9.0); Specific Gravity - Urine 1.020 (1.005-1.025)
[2025-11-19 16:42] LABS: Anion Gap 10 (12-20); Blood Urea Nitrogen 10 mg/dL (9-16); Calcium 9.5 mg/dL (8.4-10.2); Carbon Dioxide 30 mmol/L (22-29); Chloride 104 mmol/L (96-108); Estimated Glomerular Filt Rate > 60; Potassium 4.0 mmol/L (3.3-5.1); Sodium 140 mmol/L (135-145)
== END 2025-11-19 15:45 | disposition home or self-care (01) ==
LOC: HO.LAB 15:44
PROVIDERS: PCP Family Medicine; Referring Provider Nurse Practitioner Family; Visit Provider Family Medicine
DX: Z00.00 Encounter for general adult medical examination without abnormal findings (principal); Z12.5 Encounter for screening for malignant neoplasm of prostate
CPT/HCPCS: 36415; 80048; 81003; 84153